=== PATIENT | female | born 1950 | race Caucasian/White ===

== ENCOUNTER 2017-07-16 10:30 | Inpatient (IN) | payer MEDICARE, MEDICAID ==
[2017-07-18 09:42] VITALS: BMI 27.5
[2017-07-21] MEDS ORDERED: Fentanyl 100 MCG/2 ML VIAL ONE ×2 (06:20→06:41)
[2017-07-21] MEDS ORDERED: HYDROmorphone 0.5 MG/0.5 ML SYRINGE ONE (06:20)
[2017-07-21] MEDS ORDERED: Albumin 5% 500 ML ONE (06:41)
[2017-07-21] MEDS ORDERED: Ketamine 50 MG/ML VIAL ONE (06:42)
--- NOTE | 2017-07-21 06:51 | HP ---
CHIEF COMPLAINT: Colon mass. HISTORY OF PRESENT ILLNESS: The patient is a 67-year-old female who underwent a colonoscopy. She wa s found to have a mass at the appendiceal orifice. Biopsy was an adenoma, it was too large to be rem hector. She has had an appendectomy. She denies any rectal bleeding. No family history of colon canc er. PAST MEDICAL HISTORY: Significant for hypertension and seasonal allergies. PAST SURGICAL HISTORY: Include ovarian cyst removal at age 20, cholecystectomy, appendectomy, and a coronary artery bypass or stent. MEDICATIONS: Include metoprolol, lisinopril, buspirone, amlodipine, sertraline, VESIcare, aspirin, c alcium, multivitamins, Atorvastatin. ALLERGIES: PENICILLIN, IODINE, and IRON. FAMILY HISTORY: Father of stroke. Mother of diabetes. SOCIAL HISTORY: She quit smoking in 2004. No alcohol. PHYSICAL EXAMINATION: VITAL SIGNS: Height 5 feet 7, weight 78, body mass index 27.8, blood pressure 130/71, pulse 63. GENERAL: Well-developed, well-nourished female, in no apparent distress. HEENT: Unremarkable. LUNGS: Clear. HEART: Regular rate and rhythm. ABDOMEN: Soft, nontender, good bowel sounds. No masses. She does have a reducible umbilical hernia . EXTREMITIES: Good pulses. No pedal edema. ASSESSMENT: Colon adenoma. PLAN: Laparoscopic right hemicolectomy. CONSENT: I have discussed the planned procedure as well as risk of bleeding, infection, injury to kalyn wel, bladder, need to open, leakage from staple line. She understands and gives informed consent.
[2017-07-21] MEDS ORDERED: Bupivacaine 0.25% HCL 30 ML VIAL ONE (07:04)
[2017-07-21] MEDS ORDERED: Bupivacaine HCl 0.5%/Epinephrine 1:200,000/PF 30 ml Vial ONE (07:04)
[2017-07-21] MEDS ORDERED: Lidocaine 1% w/Epinephrine 1:200K 30 ML VIAL ONE (07:05)
[2017-07-21] MEDS ORDERED: Levofloxacin 500 mg/D5W 100 ml Premix Bag ONE (07:09)
[2017-07-21] MEDS ORDERED: Clindamycin/D5W 900 mg/50 ml Premix Bag ONE (08:34)
[2017-07-21] MEDS ORDERED: Promethazine HCl 25 MG/ML VIAL IM PRN ×3 (09:50→11:39)
[2017-07-21] MEDS ORDERED: Promethazine HCl 25 MG/ML VIAL SLOW IVP PRN (09:50)
[2017-07-21] MEDS ORDERED: Ondansetron HCl/PF 4 MG/2 ML Vial IVP PRN ×3 (09:50→11:39)
[2017-07-21] MEDS ORDERED: hydrALAZINE 20 MG/ML VIAL SLOW IVP PRN (10:11)
--- NOTE | 2017-07-21 11:12 | OP ---
PREOPERATIVE DIAGNOSIS: Right colon mass. SURGEON: Tab Wagner M.D. PROCEDURE PERFORMED: Right hemicolectomy, laparoscopic. INDICATIONS: This is a 67-year-old female who on routine colonoscopy was found to have a mass at the appendiceal orifice. Biopsy was adenomatous. It was too large for removal. FINDINGS: About a 1 cm polypoid mass. PROCEDURE IN DETAIL: After informed consent was obtained, the patient was taken to the operating bisi m. She had underwent mechanical bowel prep at home. She was given IV antibiotics and she was given general endotracheal anesthesia. Her abdomen was prepped and draped in the usual fashion. Local ane sthesia infiltrated subcutaneously and deep. A 5 mm incision was performed in left lateral abdomen. A 5 mm incision was performed and a Veress needle inserted. Drop test performed. Pneumoperitoneum was created to a volume of 2 liters of carbon dioxide. Utilizing a bladeless 5 mm trocar and 0 degre e laparoscope, direct visual entry in the abdominal cavity was performed. Pneumoperitoneum was creat ed to a pressure of 15 mmHg. A 0 degree laparoscope inserted under direct vision. Another 5 mm port was placed in the left upper quadrant and a 12 mm port placed in left lower quadrant. Then a laparo scopic lysis of adhesions was performed. The anterior abdominal wall was freed up as well as the pel vis and right upper quadrant. Then an additional 5 mm port was placed in the right lower quadrant. The right colon was freed up by opening the white line of Toldt. The ileum was freed up and the ileu m was then divided by making a window in the mesentery just below the colon wall. The linear 60 mm w franklin load stapler was used to transversely divide the ileum. The mesentery was divided utilizing the LigaSure. The ileocolic vessels were ligated with Hemoclips. Then once colon had been mobilized, a window was created underneath the colon and the mesentery and it was divided with a linear 60 mm jesus manuel e load stapler. The mesentery was then completely divided with the LigaSure. The specimen was place d in the left lower quadrant to keep it out of the way. Hemostasis assured. Then the ileum was brou ght up to the colon. An enterotomy was performed approximately 7 cm from the staple line. Then an e nterotomy was made in the colon just distal to the staple line and the stapler was inserted one limb in each limb of bowel, closed and fired. There was some spillage of enteric contents at this point. This was aspirated. Then the common enterotomy was closed transversely with a Stratafix 3-0 suture transversely. Hemostasis assured. I tried to compress air through the anastomosis that appeared to be intact. Hemostasis assured. There were no air leaks. No enteric fluid leaks. The abdomen was t horoughly irrigated and any of the visible spilled contents had been removed and irrigated multiple t imes and then the left lower quadrant incision was enlarged. A wound protector then inserted over th e trocar into the abdomen and the specimen was removed from the abdomen through the left lower quadra nt incision and it was opened in the operating room and I could visualize the polyp that it was clear ly removed and sent to pathology for further analysis, hemostasis assured. The fascia was closed wit h a running looped #1 PDS. The abdomen reinsufflated with carbon dioxide. The laparoscope was reins erted and inspected. There was no bleeding, no evidence of any enteric leak. Appeared to be that th e anastomosis was patent. Then, the abdomen decompressed and the scope removed. The trocars removed . The subcutaneous reapproximated with interrupted 3-0 Vicryl. Skin closed with interrupted 4-0 Rap vi. Dermabond applied. The patient tolerated the procedure well and transferred to recovery in goo d condition. Sponge and needle count verified correct x2.
[2017-07-21] MEDS ORDERED: D5 1/2 NS w/20 mEq KCL 1,000 ML ONE (11:28)
[2017-07-21] MEDS ORDERED: diphenhydrAMINE 25 MG CAP PO PRN (11:39)
[2017-07-21] MEDS ORDERED: diphenhydrAMINE 50 MG/ML VIAL IVP PRN (11:39)
[2017-07-21] MEDS ORDERED: Naloxone HCl 0.4 mg/ml Vial IV PRN (11:39)
[2017-07-21] MEDS ORDERED: Zolpidem Tartrate 5 MG TAB PO PRN (11:39)
[2017-07-21] MEDS ORDERED: diphenhydrAMINE 50 MG/ML VIAL IM PRN (11:39)
[2017-07-21] MEDS ORDERED: Fentanyl 5000 MCG/250 ML CADD IVPB PRN (11:39)
[2017-07-21] MEDS ORDERED: Communication Order-Pharmacy FS SCH (11:45)
[2017-07-21] MEDS ORDERED: fentaNYL Citrate/PF 2,000 MCG in Sodium Chloride 0.9% 60 ML IV PRN (12:15)
[2017-07-21] MEDS ORDERED: fentaNYL Citrate/PF 2,000 MCG in Sodium Chloride 0.9% 60 ML IV SCH (12:15)
[2017-07-21] MEDS: Acetaminophen 1,000 MG in Premix Bag 1 BAG IVPB SCH ×3 (14:04→23:23)
[2017-07-21] MEDS: D5 1/2 NS w/20 mEq KCL 1,000 ML IV SCH ×3 (14:04→21:10)
[2017-07-21] MEDS: Ketorolac Tromethamine 30 MG/ML VIAL IVP SCH ×3 (14:04→23:24)
[2017-07-21] MEDS: Clindamycin/D5W 900 MG in Premix Bag 1 BAG IVPB SCH ×2 (14:29→21:08)
[2017-07-21] MEDS ORDERED: Dexamethasone 20 MG/5 ML VIAL ONE (17:12)
[2017-07-21] MEDS ORDERED: Lidocaine 1% PF 5 ML VIAL ONE (17:12)
[2017-07-21] MEDS ORDERED: Ondansetron HCl/PF 4 MG/2 ML Vial ONE (17:12)
[2017-07-21] MEDS ORDERED: Ketorolac Tromethamine 30 MG/ML VIAL ONE (17:12)
[2017-07-21] MEDS ORDERED: PROPOFOL 200 MG/20 ML VIAL ONE (17:12)
[2017-07-21] MEDS ORDERED: Glycopyrrolate 0.2 MG/ML 5 ML SYRINGE ONE (17:12)
[2017-07-21] MEDS ORDERED: ePHEDrine/0.9% NaCl/PF SYRINGE 50 mg/10 ml ONE (17:12)
[2017-07-21] MEDS ORDERED: PHENYLEPHRINE-NS 100 MCG/ML 10 ML SYRINGE ONE (17:12)
[2017-07-21] MEDS: Famotidine/PF 20 mg/2ml Vial SLOW IVP SCH (21:09)
[2017-07-21] MEDS: Famotidine 20 MG TAB PO SCH (23:22)
[2017-07-22] MEDS: Clindamycin/D5W 900 MG in Premix Bag 1 BAG IVPB SCH (03:58)
[2017-07-22 05:45] LABS: Anion Gap 13 mmol/L (10-20); BUN (Urea Nitrogen) 24 mg/dL (9.8-20.1); Calc. Creatinine Clearance 67 mL/min (70-130); Calcium 8.8 mg/dL (7.8-10.44); Carbon Dioxide 23 mmol/L (23-31); Chloride 106 mmol/L (98-107); Estimated GFR-MDRD 51; Glucose 148 mg/dL (80-115); Potassium 3.4 mmol/L (3.5-5.1); Sodium 139 mmol/L (136-145)
[2017-07-22 06:04] LABS: Band 11 % (5-11); Hemoglobin 11.9 g/dL (12.0-16.0); Lymphocytes 4 % (21-51); MDiff Complete? YES; Mean Corpuscular HGB CONC 32.8 g/dL (32.0-36.0); Mean Corpuscular Hemoglobin 31.6 pg (27.0-31.0); Mean Corpuscular Volume 96.2 fl (81.0-99.0); Mean Platelet Volume 7.6 fL (7.4-10.4); Monocytes 6 % (0-10); Neutrophil 79 % (42-75); Platelet Count 182 thou/uL (130-400); RBC Distribution Width 11.6 % (11.5-14.5); Red Blood Cell (RBC) Count 3.76 mill/uL (4.20-5.40); White Blood Cell (WBC) Count 20.2 thou/uL (4.8-10.8)
[2017-07-22] MEDS: Ketorolac Tromethamine 30 MG/ML VIAL IVP SCH ×3 (06:06→17:32)
[2017-07-22] MEDS: Acetaminophen 1,000 MG in Premix Bag 1 BAG IVPB SCH (06:07)
[2017-07-22] MEDS: D5 1/2 NS w/20 mEq KCL 1,000 ML IV SCH ×2 (08:28→20:41)
[2017-07-22] MEDS: Famotidine/PF 20 mg/2ml Vial SLOW IVP SCH ×2 (08:28→22:15)
[2017-07-22] MEDS: Famotidine 20 MG TAB PO SCH ×2 (08:37→20:43)
[2017-07-22] MEDS ORDERED: Enoxaparin Sodium 40 MG/0.4 ML SYRINGE SC SCH (09:00)
[2017-07-22] MEDS ORDERED: Prevnar 13-Val Conj/PF 0.5 ML SYRINGE IM ONE (09:00)
[2017-07-22] MEDS ORDERED: HYDROcodone/Acetaminophen 7.5/325 mg Tablet PO PRN ×2 (12:25)
[2017-07-23] MEDS: Ketorolac Tromethamine 30 MG/ML VIAL IVP SCH ×2 (01:48→04:59)
[2017-07-23] MEDS: D5 1/2 NS w/20 mEq KCL 1,000 ML IV SCH (04:58)
[2017-07-23 06:01] LABS: #Lymphocytes 1.5 thou/uL (1.20-3.40); #Monocytes 0.7 thou/uL (0.11-0.59); #Neutrophils 12.5 thou/uL (1.40-6.50); %Basophils 0.1 % (0.0-1.0); %Eosinophils 0.2 % (0.0-10.0); %Lymphocytes 9.8 % (21.0-51.0); %Neutrophils 84.9 % (42.0-75.0); Hemoglobin 11.9 g/dL (12.0-16.0); Mean Corpuscular HGB CONC 34.2 g/dL (32.0-36.0); Mean Corpuscular Hemoglobin 32.8 pg (27.0-31.0); Mean Corpuscular Volume 96.1 fl (81.0-99.0); Mean Platelet Volume 8.2 fL (7.4-10.4); Platelet Count 154 thou/uL (130-400); RBC Distribution Width 11.7 % (11.5-14.5); Red Blood Cell (RBC) Count 3.61 mill/uL (4.20-5.40); White Blood Cell (WBC) Count 14.8 thou/uL (4.8-10.8)
[2017-07-23] MEDS ORDERED: Enoxaparin Sodium 40 MG/0.4 ML SYRINGE SC SCH (09:00)
[2017-07-23] MEDS: Famotidine 20 MG TAB PO SCH (09:00)
[2017-07-23] MEDS: Famotidine/PF 20 mg/2ml Vial SLOW IVP SCH (09:04)
[2017-07-23 11:17] VITALS: BP 146/79; TEMP 97.8
--- NOTE | 2017-07-23 11:47 | DIS ---
DISCHARGE DIAGNOSIS: Right colon mass. PROCEDURES DURING ADMISSION: Laparoscopic right hemicolectomy. HOSPITAL COURSE: The patient was admitted. She had undergone a mechanical bowel prep. She was give n IV antibiotics, taken to the operating room where she underwent a laparoscopic right hemicolectomy. Postoperatively, she has done well. She is passing flatus, tolerating liquids well. She is afebri le, minimal pain. She is discharged home in good condition on hydrocodone and Zofran to follow up wi th me in 2 weeks.
== END 2017-07-23 11:24 | disposition home or self-care (01) | DRG 331 ==
LOC: SURG A 07-21 05:50
PROVIDERS: ADMIT Surgery; ATTEND Surgery
PROC: 0DTF0ZZ Resection of Right Large Intestine, Open Approach (ICD-10-PCS; principal; 2017-07-21)
DX: D12.0 Benign neoplasm of cecum (principal); I10 Essential (primary) hypertension; Z90.49 Acquired absence of other specified parts of digestive tract; Z79.82 Long term (current) use of aspirin; Z87.891 Personal history of nicotine dependence
CPT/HCPCS: 36415; 36416; 80048; 80053; 82378; 83036; 85025; 88307; 88341; 88342; 93005; 93010; J0131; J0670; J1100; J1170; J1650; J1885; J1956; J2001; J2405; J2704; J3010; J3490; J7050; P9045; S0020; S0028

== ENCOUNTER 2017-08-25 08:32 | Outpatient (CLI) | payer MEDICARE, MEDICAID | END 2017-08-25 08:33 | disposition home or self-care (01) | LOC: BICMAMMO 08:32 | PROVIDERS: ATTEND Family Medicine | DX: Z13.820 Encounter for screening for osteoporosis (principal) | CPT/HCPCS: 77080 ==

== ENCOUNTER 2018-05-07 13:14 | Outpatient (CLI) | payer MEDICARE, MEDICAID | END 2018-05-07 13:15 | disposition home or self-care (01) | LOC: BICMAMMO 13:14 | PROVIDERS: ATTEND Family Medicine | DX: Z12.31 Encounter for screening mammogram for malignant neoplasm of breast (principal) | CPT/HCPCS: 77063; 77067 ==

== ENCOUNTER 2018-10-29 08:58 | Outpatient (CLI) | payer MEDICARE, MEDICAID ==
--- NOTE | 2018-10-29 11:04 | MRI ---
MRI OF THE RIGHT KNEE: Date: 10/29/18 PROVIDED CLINICAL HISTORY: Right knee pain. FINDINGS: The anterior cruciate ligament, posterior cruciate ligament, medial collateral ligament, and lateral collateral ligamentous complex demonstrate an intact MR appearance. There is marked thickening and signal inhomogeneity involving the distal quadriceps tendon with foci with conspicuous foci of linear true fluid signal intensity. There is complex nondisplaced tearing involving the body and posterior horn of the medial meniscus. T he lateral meniscus demonstrates no evidence for tear. There is no focal articular cartilage defect apparent. There are small foci of articular cartilage fi ssuring and articular cartilage thinning involving the patella. There is a small knee joint effusion with small Pinon's cyst. No focal concerning regional marrow or muscular signal abnormality is evident. IMPRESSION: 1. Complex nondisplaced body and posterior horn medial meniscal tear. 2. Tendinosis and partial thickness nonattenuating interstitial tearing involving the distal quadric eps tendon. 3. Small knee joint effusion. 4. Patellar chondrosis. POS: C
== END 2018-10-29 08:59 | disposition home or self-care (01) ==
LOC: BICMRI 08:58
PROVIDERS: ATTEND Family Medicine
DX: M17.11 Unilateral primary osteoarthritis, right knee (principal); S83.241A Other tear of medial meniscus, current injury, right knee, initial encounter; S86.911A Strain of unspecified muscle(s) and tendon(s) at lower leg level, right leg, initial encounter; M25.461 Effusion, right knee

== ENCOUNTER 2018-12-11 14:11 | Outpatient (CLI) | payer MEDICARE ==
[2018-12-11 15:49] LABS: #Basophils 0.1 thou/uL (0.0-0.2); #Eosinphils 0.3 thou/uL (0.0-0.7); #Lymphocytes 3.1 thou/uL (1.20-3.40); #Monocytes 0.8 thou/uL (0.11-0.59); #Neutrophils 5.9 thou/uL (1.40-6.50); %Basophils 0.7 % (0.0-1.0); %Eosinophils 2.5 % (0.0-10.0); %Lymphocytes 30.7 % (21.0-51.0); %Monocytes 7.6 % (0.0-10.0); %Neutrophils 58.4 % (42.0-75.0); Hemoglobin 14.4 g/dL (12.0-16.0); Mean Corpuscular HGB CONC 33.3 g/dL (32.0-36.0); Mean Corpuscular Hemoglobin 31.2 pg (27.0-31.0); Mean Corpuscular Volume 93.9 fL (78.0-98.0); Platelet Count 250 thou/uL (130-400); Red Blood Cell (RBC) Count 4.61 mill/uL (4.20-5.40)
[2018-12-11 16:09] LABS: ALT (SGPT) 14 U/L (8-55); AST (SGOT) 16 U/L (5-34); Albumin 4.6 g/dL (3.4-4.8); Alkaline Phosphatase 104 U/L (40-150); Anion Gap 14 mmol/L (10-20); BUN (Urea Nitrogen) 11 mg/dL (9.8-20.1); Bilirubin, Total 0.9 mg/dL (0.2-1.2); Calc. Creatinine Clearance 0 mL/min (70-130); Carbon Dioxide 26 mmol/L (23-31); Chloride 103 mmol/L (98-107); Estimated GFR-MDRD 61; Globulin 3.2 g/dL (2.4-3.5); Glucose 93 mg/dL (80-115); Potassium 4.2 mmol/L (3.5-5.1); Protein, Total 7.8 g/dL (6.0-8.3); Sodium 139 mmol/L (136-145)
--- NOTE | 2018-12-21 18:47 | EKG ---
Test Reason : Blood Pressure : / mmHG Vent. Rate : 054 BPM Atrial Rate : 054 BPM P-R Int : 194 ms QRS Dur : 080 ms QT Int : 480 ms P-R-T Axes : 055 012 026 degrees QTc Int : 455 ms Sinus bradycardia Otherwise normal ECG When compared with ECG of 18-JUL-2017 10:15, No significant change was found Confirmed by MICHELLE CHAN (2) on 12/21/2018 6:46:51 PM Referred By: YANNICK Confirmed By:MICHELLE CHAN
== END 2018-12-11 14:12 | disposition home or self-care (01) ==
LOC: LABBT 14:11
PROVIDERS: ATTEND Surgery
DX: Z01.818 Encounter for other preprocedural examination (principal); K43.2 Incisional hernia without obstruction or gangrene; K43.9 Ventral hernia without obstruction or gangrene
CPT/HCPCS: 80053; 85025; 93005; 93010

== ENCOUNTER 2018-12-18 10:13 | Inpatient (IN) | payer MEDICARE, MEDICAID ==
[2018-12-18] MEDS ORDERED: Bupivacaine/Epinephrine 0.25% 30 ML VIAL ONE (11:09)
[2018-12-18] MEDS ORDERED: Levofloxacin 500 mg/D5W 100 ml Premix Bag ONE (11:13)
[2018-12-18] MEDS ORDERED: Ondansetron PF 4 MG/2 ML Vial IVP PRN (13:16)
[2018-12-18] MEDS ORDERED: Promethazine HCl 25 MG/ML VIAL IM PRN (13:16)
[2018-12-18] MEDS ORDERED: HYDROcodone/Acetaminophen 10/325 mg Tablet PO PRN ×2 (13:16)
[2018-12-18] MEDS ORDERED: Morphine 4 MG/ML VIAL SLOW IVP PRN ×2 (13:16)
[2018-12-18] MEDS ORDERED: Dextrose 50% Abboject 50 ML SYRINGE SLOW IVP PRN (13:16)
[2018-12-18] MEDS ORDERED: Dextrose 5% in Water 1,000 ML IV PRN (13:16)
[2018-12-18] MEDS ORDERED: hydrALAZINE 20 MG/ML VIAL SLOW IVP PRN (13:16)
[2018-12-18] MEDS ORDERED: Ondansetron PF 4 MG/2 ML Vial ONE (13:44)
[2018-12-18] MEDS ORDERED: Fentanyl 100 MCG/2 ML VIAL ONE (13:53)
--- NOTE | 2018-12-18 14:22 | OP ---
DATE OF PROCEDURE: 12/18/2018 PREOPERATIVE DIAGNOSIS: Incisional ventral hernia, left lower quadrant. PROCEDURE PERFORMED: Laparoscopic ventral hernia repair with mesh. INDICATIONS: A 68-year-old female who had a previous right colon resection for a large polyp, who developed an incisional hernia on the extraction port site, left lower quadrant. FINDINGS: A 4 x 4 cm defect in the left lower quadrant. A 15 x 10 cm piece of Proceed mesh used. DESCRIPTION OF PROCEDURE: After informed consent was obtained, the patient was taken to the operating room and given general endotracheal anesthesia, placed in the supine position. Abdomen was prepped and draped in the usual fashion. Local anesthesia infiltrated subcutaneously and deep. A 12-mm incision was performed at the right flank. Veress needle inserted. Drop test performed. Pneumoperitoneum was created to a volume of 2 L of carbon dioxide. Utilizing a bladeless 12-mm trocar and 0-degree laparoscope, direct visual entry in the abdominal cavity was performed. Pneumoperitoneum was created to a pressure of 15 mmHg. Under direct vision, two 5-mm ports were placed in the right lateral abdomen. A laparoscopic lysis of adhesions was performed to completely empty the hernia cavity. Then, utilizing 0 Ethibond V-Loc suture, the hernia was closed transversely. Then, it was measured at 4 cm. A 10 x 15 cm piece of mesh was fashioned by placing 0 Ethibond suture in four quadrants on the mesh, hydrating it, rolling it, inserting it intra-abdominally, then unrolled intra-abdominally using the GraNee needle. The sutures were individually grasped to position the mesh optimally to cover the repair. This was further secured to the abdominal wall utilizing SecureStrap tacks. The final repair was done under reduced abdominal pressure of 12 mmHg. At this point, the initial 12-mm port was closed with a 0 Vicryl suture in the GraNee needle. The abdomen decompressed. Scope was removed. The skin closed with interrupted 4-0 Rapide. Dermabond applied. Sterile bandage applied and a binder. The patient tolerated the procedure well, transferred to Recovery in good condition. Sponge and needle count verified correct x2. Job ID: [id number]
[2018-12-18] MEDS ORDERED: D5 1/2 NS w/20 mEq KCL 1,000 ML ONE (15:14)
[2018-12-18 17:27] VITALS: BMI 28.7
[2018-12-18] MEDS: Ketorolac Tromethamine 30 MG/ML VIAL IVP SCH ×2 (18:28→23:17)
[2018-12-18] MEDS: D5 1/2 NS w/20 mEq KCL 1,000 ML IV SCH ×2 (19:11→23:28)
[2018-12-18] MEDS ORDERED: Lisinopril 20 MG TAB PO SCH (21:00)
[2018-12-18] MEDS ORDERED: Amlodipine 5 MG TAB PO SCH (21:00)
[2018-12-18] MEDS ORDERED: Trospium 20 MG TAB PO SCH (21:00)
[2018-12-18] MEDS ORDERED: Atorvastatin Calcium 40 MG TAB PO SCH (21:00)
[2018-12-18] MEDS: Famotidine/PF 20 mg/2ml Vial SLOW IVP SCH (23:12)
[2018-12-18] MEDS: busPIRone HCl 10 MG TAB PO SCH (23:15)
[2018-12-18] MEDS: Metoprolol Tartrate 100 MG TAB PO SCH (23:16)
[2018-12-18] MEDS: Famotidine 20 MG TAB PO SCH (23:16)
[2018-12-19 04:20] LABS: #Lymphocytes 1.4 thou/uL (1.20-3.40); #Monocytes 0.8 thou/uL (0.11-0.59); #Neutrophils 14.1 thou/uL (1.40-6.50); %Eosinophils 0.1 % (0.0-10.0); %Lymphocytes 8.3 % (21.0-51.0); %Monocytes 5.1 % (0.0-10.0); %Neutrophils 86.4 % (42.0-75.0); Hemoglobin 12.9 g/dL (12.0-16.0); Mean Corpuscular HGB CONC 33.7 g/dL (32.0-36.0); Mean Corpuscular Hemoglobin 31.5 pg (27.0-31.0); Mean Corpuscular Volume 93.5 fL (78.0-98.0); Mean Platelet Volume 7.8 fL (7.4-10.4); Platelet Count 218 thou/uL (130-400); RBC Distribution Width 11.7 % (11.5-14.5); Red Blood Cell (RBC) Count 4.09 mill/uL (4.20-5.40); White Blood Cell (WBC) Count 16.3 thou/uL (4.8-10.8)
[2018-12-19 04:34] LABS: Anion Gap 11 mmol/L (10-20); BUN (Urea Nitrogen) 12 mg/dL (9.8-20.1); Calc. Creatinine Clearance 83 mL/min (70-130); Calcium 9.2 mg/dL (7.8-10.44); Carbon Dioxide 23 mmol/L (23-31); Chloride 104 mmol/L (98-107); Estimated GFR-MDRD 68; Glucose 141 mg/dL (80-115); Potassium 4.2 mmol/L (3.5-5.1); Sodium 134 mmol/L (136-145)
[2018-12-19] MEDS: Ketorolac Tromethamine 30 MG/ML VIAL IVP SCH ×2 (06:38→11:27)
[2018-12-19] MEDS: Famotidine 20 MG TAB PO SCH (09:00)
[2018-12-19] MEDS ORDERED: Aspirin Chewable 81 MG TAB PO SCH ×2 (09:00→21:00)
[2018-12-19] MEDS: busPIRone HCl 10 MG TAB PO SCH (09:00)
[2018-12-19] MEDS ORDERED: Enoxaparin Sodium 30 MG/0.3 ML SYRINGE SC SCH (09:00)
[2018-12-19] MEDS: Metoprolol Tartrate 100 MG TAB PO SCH (09:00)
[2018-12-19] MEDS: D5 1/2 NS w/20 mEq KCL 1,000 ML IV SCH (09:01)
[2018-12-19] MEDS: Famotidine/PF 20 mg/2ml Vial SLOW IVP SCH (09:02)
[2018-12-19] MEDS ORDERED: Levofloxacin 500 mg/D5W 100 ml Premix Bag IVPB SCH (11:00)
[2018-12-19] MEDS ORDERED: traMADol HCl 50 MG TAB PO PRN ×2 (15:25)
[2018-12-19] MEDS ORDERED: Acetaminophen 500 MG TAB PO PRN ×2 (15:25→15:31)
--- NOTE | 2018-12-19 16:11 | PRG ---
DATE OF SERVICE: 12/19/2018 SUBJECTIVE: Carrie Solis is doing well today. She is tolerating her diet. Her pain is under good control. OBJECTIVE: LUNGS: Clear to auscultation. CARDIAC: Rhythm without murmur or gallop. VITAL SIGNS: Temperature 97.9, heart rate 75, blood pressure 145/75. ABDOMEN: Soft, nontender with good bowel sounds. Laparoscopic wounds well healed. LABORATORY DATA: Hemoglobin and basic metabolic profile are normal this morning. HOME MEDICATIONS: 1. Tylenol. 2. Atorvastatin. 3. Amlodipine. 4. Lisinopril. 5. Sertraline. 6. Metoprolol. 7. Buspirone. 8. Aspirin. 9. Tramadol. 10. Ibuprofen. 11. Acetaminophen. ASSESSMENT AND PLAN: Doing well after laparoscopic incisional hernia repair. Discharged home. No lifting over 25 pounds for 6 weeks. Remove abdominal binder to shower or bathe. [id number]-[id number] Tylenol, Ultram, and Motrin p.r.n. pain. Resume home medications. Follow up with Dr. Wagner in 2 to 3 weeks. Job ID: [id number]
[2018-12-19 16:44] VITALS: BP 155/81; TEMP 97.4
[2018-12-19] MEDS ORDERED: Amlodipine 5 MG TAB PO SCH (21:00)
[2018-12-19] MEDS ORDERED: Non-Formulary Item 1 EACH (Lisinopril [Lisinopril] 1 TAB) PO SCH (21:00)
[2018-12-19] MEDS ORDERED: Metoprolol Tartrate 100 MG TAB PO SCH (21:00)
[2018-12-19] MEDS ORDERED: Non-Formulary Item 1 EACH (Atorvastatin Calcium [Lipitor] 80 MG) PO SCH (21:00)
[2018-12-19] MEDS ORDERED: busPIRone HCl 10 MG TAB PO SCH (21:00)
[2018-12-20] MEDS ORDERED: Polyethylene Glycol 3350 17 GM Packet PO SCH (09:00)
[2018-12-20] MEDS ORDERED: Non-Formulary Item 1 EACH (Sertraline Hcl [Zoloft] 50 MG) PO SCH (09:00)
[2018-12-21] MEDS ORDERED: Ibuprofen 600 MG TAB PO PRN (23:59)
== END 2018-12-19 17:00 | disposition home or self-care (01) | DRG 355 ==
LOC: SDC 10:13 → SURG A 13:16
PROVIDERS: ADMIT Surgery; ATTEND Surgery
PROC: 0WUF4JZ Supplement Abdominal Wall with Synthetic Substitute, Percutaneous Endoscopic Approach (ICD-10-PCS; principal; 2018-12-18)
DX: K43.2 Incisional hernia without obstruction or gangrene (principal); I10 Essential (primary) hypertension; Z88.0 Allergy status to penicillin; Z91.041 Radiographic dye allergy status; Z90.49 Acquired absence of other specified parts of digestive tract; Z98.51 Tubal ligation status; Z79.82 Long term (current) use of aspirin
CPT/HCPCS: 36415; 80048; 85025; J1650; J1885; J1956; J2270; J2405; J3010; S0028

== ENCOUNTER 2019-05-10 11:17 | Outpatient (CLI) | payer MEDICARE, MEDICAID ==
--- NOTE | 2019-05-10 13:27 | MMO ---
Bilateral MAMMO Bilat Screen [facility]. CLINICAL HISTORY: Patient is 69 years old and is seen for screening. The patient has no family history of breast cancer. The patient has no personal history of cancer. VIEWS: The views performed were: bilateral craniocaudal with tomosynthesis and bilateral mediolateral oblique with tomosynthesis. FILMS COMPARED: The present examination has been compared to prior imaging studies performed at [facility] on 11/01/2015, 04/29/2016, 05/01/2017 and 05/07/2018. This study has been interpreted with the assistance of computer-aided detection. MAMMOGRAM FINDINGS: There are scattered fibroglandular densities. There are stable intramammary lymph nodes seen in both breasts. There are no suspicious masses, suspicious calcifications, or new areas of architectural distortion. IMPRESSION: THERE IS NO MAMMOGRAPHIC EVIDENCE OF MALIGNANCY. A ROUTINE FOLLOW-UP MAMMOGRAM IN 1 YEAR IS RECOMMENDED. THE RESULTS OF THIS EXAM WERE SENT TO THE PATIENT. ACR BI-RADS Category 2 - Benign finding MAMMOGRAPHY NOTE: 1. A negative mammogram report should not delay a biopsy if a dominant of clinically suspicious mass is present. 2. Approximately 10% to 15% of breast cancers are not detected by mammography. 3. Adenosis and dense breasts may obscure an underlying neoplasm. Reported by: INDIGO JUNG MD Electonically Signed: [id number]
== END 2019-05-10 11:18 | disposition home or self-care (01) ==
LOC: BICMAMMO 11:17
PROVIDERS: ATTEND Family Medicine
DX: Z12.31 Encounter for screening mammogram for malignant neoplasm of breast (principal)
CPT/HCPCS: 77063; 77067

== ENCOUNTER 2019-08-15 18:58 | Inpatient (IN) | payer MEDICARE, MEDICAID ==
[2019-08-15 19:43] LABS: #Lymphocytes 0.9 thou/uL (1.20-3.40); #Monocytes 1.4 thou/uL (0.11-0.59); #Neutrophils 11.3 thou/uL (1.40-6.50); %Basophils 0.1 % (0.0-1.0); %Eosinophils 0.1 % (0.0-10.0); %Lymphocytes 6.5 % (21.0-51.0); %Monocytes 10.4 % (0.0-10.0); Hemoglobin 11.5 g/dL (12.0-16.0); Mean Corpuscular HGB CONC 32.6 g/dL (32.0-36.0); Mean Corpuscular Hemoglobin 30.2 pg (27.0-31.0); Mean Corpuscular Volume 92.8 fL (78.0-98.0); Mean Platelet Volume 8.3 fL (7.4-10.4); Platelet Count 150 thou/uL (130-400); RBC Distribution Width 11.4 % (11.5-14.5); Red Blood Cell (RBC) Count 3.81 mill/uL (4.20-5.40); White Blood Cell (WBC) Count 13.7 thou/uL (4.8-10.8)
[2019-08-15 20:05] LABS: Bacteria/HPF 2+ HPF (None Seen); Bilirubin Negative (Negative); Blood, Urine 1+ (Negative); Clarity Turbid (Clear); Glucose, Urine (Dipstick) Normal (Negative); Leukocyte 500 Leu/uL (Negative); Nitrite 1+ (Negative); Protein, Urine (Dipstick) 100 mg/dL (Neg-Trace); Squamous Epithelial 0-3 HPF (0-3); Urobilinogen Normal mg/dL (Less than 2); WBC/HPF Greater than 50 HPF (0-3); Yeast-Budding 2+ HPF (None Seen)
[2019-08-15 20:14] LABS: ALT (SGPT) 21 U/L (8-55); AST (SGOT) 28 U/L (5-34); Albumin 3.5 g/dL (3.4-4.8); Alkaline Phosphatase 100 U/L (40-110); Anion Gap 15 mmol/L (10-20); BUN (Urea Nitrogen) 9 mg/dL (9.8-20.1); Bilirubin, Total 1.2 mg/dL (0.2-1.2); CK (CPK) 60 U/L (29-168); Calc. Creatinine Clearance 0 mL/min (70-130); Calcium 8.1 mg/dL (7.8-10.44); Carbon Dioxide 19 mmol/L (23-31); Chloride 102 mmol/L (98-107); Estimated GFR-MDRD 65; Globulin 3.1 g/dL (2.4-3.5); Glucose 138 mg/dL (80-115); Protein, Total 6.6 g/dL (6.0-8.3); Sodium 133 mmol/L (136-145)
[2019-08-15 20:16] LABS: Potassium 2.8 mmol/L (3.5-5.1)
[2019-08-15] MEDS ORDERED: cefTRIAXone\\ROCEPHIN 2 GM VIAL ONE (20:33)
[2019-08-15 20:36] LABS: CKMB 0.5 ng/mL (0-6.6)
--- NOTE | 2019-08-15 20:44 | PDOC.FPRHP ---
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 Patient's best friend and her best friend's daughter accompanied her during the encounter. Per patient she has felt weak throughout the last few days. Per her best friend she just laid in bed yesterday without much activity which is unlike her. Her friend also thought she felt warm yesterday and measured her temperature which was 99.3F. Patient endorses increased urinary frequency throughout the last few days, but denies dysuria. Patient reportedly was bending down to grab a dog bowl today when she fell into a book case. It was a witness fall and witnesses deny trauma to her head. After the fall they decided to bring her into the ED. PCP: [facility] ED Course: 1g vanc, 2.5L NS, rocephin - Allergies/Adverse Reactions Allergies Allergy/AdvReac Type Severity Reaction Status Date / Time Penicillins Allergy Severe HIVES, Verified 08/15/19 23:02 SWELLING iodine Allergy Intermediate Rash Verified 08/15/19 23:02 iron Allergy Intermediate VOMITING Verified 08/15/19 23:02 Iodine and Iodide Containing Allergy RASH, Verified 08/15/19 23:02 Produc - Home Medications Medication Instructions Recorded Confirmed Type Amlodipine Besylate [amLODIPine 5 mg PO DAILY 08/12/16 08/15/19 History Besylate] Atorvastatin Calcium [Lipitor] 80 mg PO HS 08/12/16 08/15/19 History Metoprolol Tartrate [Lopressor] 100 mg PO BID 08/12/16 08/15/19 History Sertraline HCl [Zoloft] 50 mg PO QAM 08/12/16 08/15/19 History busPIRone HCl [Buspar] 10 mg PO QAM 08/12/16 08/15/19 History Lisinopril 1 tab PO QAM 12/11/18 08/15/19 History Acetaminophen [Tylenol Extra 1,000 mg PO Q6H PRN tab 12/19/18 08/15/19 Rx Strength] Ibuprofen [Motrin] 600 mg PO Q6H PRN tab 12/19/18 08/15/19 Rx Hydrochlorothiazide 25 mg PO QAM 08/15/19 08/15/19 History - History PMHx: HTN, HLD, OA, depression, and a 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 PSHx: L oophorectomy FHx: Mother-CAD, DM2 Social: 30+yr smoking hx quit 15yrs ago, no etoh or drug use - Vital signs BP: [148/84] HR: [98] RR: [20] Tmax: [99.9F] Pox: [98]% on [RA] Wt: [80.5kg] - Physical Exam Constitutional: NAD, well developed HEENT: normocephalic and atraumatic, EOMI Neck: supple, FROM Chest: no-tender to palpation, no lesions Heart: RRR, normal S1/S2 Lungs: CTAB, no respiratory distress Abdomen: other (suprapubic ttp, CVA tenderness R>L) Musculoskeletal: normal structure, ROM grossly normal Neurological: no focal deficit, normal sensation Skin: no rash/lesions, good turgor Heme/Lymphatic: no unusual bruising or bleeding, no purpura Psychiatric: normal mood and affect, good judgment and insight FMR H&P: Results - Labs Result Diagrams: 08/16/19 05:23 08/16/19 05:23 Lab results: WBC 13.7 thou/uL (4.8-10.8) H 08/15/19 19:19 Hgb 11.5 g/dL (12.0-16.0) L 08/15/19 19:19 Hct 35.3 % (36.0-47.0) L 08/15/19 19:19 MCV 92.8 fL (78.0-98.0) 08/15/19 19:19 Plt Count 150 thou/uL (130-400) 08/15/19 19:19 Neutrophils % 83.0 % (42.0-75.0) H 08/15/19 19:19 Sodium 133 mmol/L (136-145) L 08/15/19 19:19 Potassium 2.8 mmol/L (3.5-5.1) L* 08/15/19 19:19 Chloride 102 mmol/L (98-107) 08/15/19 19:19 Carbon Dioxide 19 mmol/L (23-31) L 08/15/19 19:19 BUN 9 mg/dL (9.8-20.1) L 08/15/19 19:19 Creatinine 0.87 mg/dL (0.6-1.1) 08/15/19 19:19 Glucose 138 mg/dL (80-115) H 08/15/19 19:19 Lactic Acid 0.8 mmol/L (0.5-2.2) 08/15/19 19:19 Calcium 8.1 mg/dL (7.8-10.44) 08/15/19 19:19 Total Bilirubin 1.2 mg/dL (0.2-1.2) 08/15/19 19:19 AST 28 U/L (5-34) 08/15/19 19:19 ALT 21 U/L (8-55) 08/15/19 19:19 Alkaline Phosphatase 100 U/L (40-110) 08/15/19 19:19 Creatine Kinase 60 U/L (29-168) 08/15/19 19:19 CK-MB (CK-2) 0.5 ng/mL (0-6.6) 08/15/19 19:19 Serum Total Protein 6.6 g/dL (6.0-8.3) 08/15/19 19:19 Albumin 3.5 g/dL (3.4-4.8) 08/15/19 19:19 Urine Ketones Negative mg/dL (Negative) 08/15/19 19:30 Urine Blood 1+ (Negative) A 08/15/19 19:30 Urine Nitrite 1+ (Negative) A 08/15/19 19:30 Ur Leukocyte Esterase 500 Jenny/uL (Negative) A 08/15/19 19:30 Urine RBC 11-20 HPF (0-3) A 08/15/19 19:30 Urine WBC Greater than 50 HPF (0-3) A 08/15/19 19:30 Ur Squamous Epith Cells 0-3 HPF (0-3) 08/15/19 19:30 Urine Bacteria 2+ HPF (None Seen) A 08/15/19 19:30 FMR H&P: A/P - Problem List (1) Sepsis Current Visit: Yes Status: Acute Code(s): A41.9 - SEPSIS, UNSPECIFIED ORGANISM (2) Pyelonephritis Current Visit: Yes Status: Acute Code(s): N12 - TUBULO-INTERSTITIAL NEPHRITIS, NOT SPCF ACUTE OR CHRONIC (3) UTI (urinary tract infection) Current Visit: Yes Status: Acute (4) Elevated troponin Current Visit: Yes Status: Acute Code(s): R79.89 - OTHER SPECIFIED ABNORMAL FINDINGS OF BLOOD CHEMISTRY (5) Hypokalemia Current Visit: Yes Status: Acute Code(s): E87.6 - HYPOKALEMIA (6) HTN (hypertension) Current Visit: Yes Status: Chronic Code(s): I10 - ESSENTIAL (PRIMARY) HYPERTENSION (7) HLD (hyperlipidemia) Current Visit: Yes Status: Chronic Code(s): E78.5 - HYPERLIPIDEMIA, UNSPECIFIED (8) Depression Current Visit: Yes Status: Chronic Code(s): F32.9 - MAJOR DEPRESSIVE DISORDER, SINGLE EPISODE, UNSPECIFIED (9) Osteoarthritis Current Visit: Yes Status: Chronic Code(s): M19.90 - UNSPECIFIED OSTEOARTHRITIS, UNSPECIFIED SITE (10) History of CVA (cerebrovascular accident) Current Visit: Yes Status: Chronic Code(s): Z86.73 - PRSNL HX OF TIA (TIA), AND CEREB INFRC W/O RESID DEFICITS - Plan Patient is a 69F with PMHx of HTN, HLD, OA, depression, and a 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 #sepsis 2/2 UTI #Pyelonephritis -weakness and increased urinary frequency for last several days -UA: turbid, leuks, nitrites, wbc, bacteria -started on vanc and rocephin in ED -hx of UTI every few years -continue rocephin -urine and blood cx pending, will follow -CVA tenderness, R>L; bilateral renal US ordered -decreased PO intake; IVF #Hypokalemia -potassium 2.8, repleted with 40meq KCl -will continue to monitor and replete as necessary #Elevated trop -trop 0.031 -patient denies chest pain -no ST elevation on EKG -will trend #HTN -continue home meds #HLD -continue home meds #OA -continue home meds #Depression -continue home meds DVT ppx: lovenox Diet: Dispo: inpatient for IV abx for sepsis 2/2 UTI; urine and blood cultures pending ; monitoring potassium and trending trops Code: Full PCP: [facility] FMR H&P: Upper Level - Pertinent history 69 yo F here with complaint of fever, chills, and increased urinary frequency. This has been worsening for the past 3 days. In the ED labs were significant for a K of 2.8 and UA positive for nitrites, LE, WBCs, and bacteria. She was given Rocephin and Vanc and a 2L NS bolus. Blood and urine cx were sent prior to abx PMHx HTN CAD Hx of stroke with L sided deficit MDD HLD FHx non contributory Social Hx 30 pack year smoking hx, quit 15 years ago No etoh or drugs - Pertinent findings See nutrition internship note for full ROS, PE, vitals, and labs ROS General Complains of chills and fever HEENT denies sore throat or ear pain CV Denies CP, diaphoresis or palpitations Resp Denies SOB or cough GI Complains of lower abdominal pain. Complains of n/v complains of dysuria and frequency Neuro denies weakness or numbness. PE General A&O x4 HEENT NCAT CV RRR, no murmur Resp CTA Abd suprapubic tenderness. R sided CVAT Neuro L arm held in flexion. Weakness in L upper and lower extremities - Plan Date/Time: 08/15/192042 I, Tab Helm DO, have evaluated this patient and agree with findings/plan as outlined by nutrition internship resident. Pertinent changes/additions are listed here. 1.Sepsis secondary to Pyelonephritis - Continue IV rocephin -Urine cultures pending Renal US to r/o abscess -Tylenol as needed for fever -IVF at maintenance rate -Admit to medical obs 2.Hypokalemia -Replaced PO in the ED. -Check Mg and replace if indicated -Recheck in am 3.HTN -Restart home meds See nutrition internship portion for management of other chronic disease Diet Heart healthy Code Full PPx SCD Dispo: pt is in fair condition. Plan to admit for IV abx, K replacement, and control of n/v. Likely length of stay is 2-3 days Addendum - Attending - Attending Attestation Date/Time: 08/16/19 [id number] I personally evaluated the patient and discussed the management with Dr. Miller last night. I agree with the History, Examination, Assessment and Plan documented above with any addition or exceptions noted below. Primarily admitted for Spesis from UTI. However patiet notes she has been falling frequently. PT/OT to eval. May benefit from extended rehab for frequent falls.
[2019-08-15] MEDS ORDERED: Potassium Chloride 20 MEQ TAB ONE (21:40)
[2019-08-15] MEDS ORDERED: Aspirin 325 MG TAB ONE (22:02)
[2019-08-15 23:17] VITALS: BMI 27.8
[2019-08-15] MEDS: Sodium Chloride 0.9% 1,000 ML IV SCH (23:25)
[2019-08-15] MEDS ORDERED: Ondansetron ODT 4 MG TAB PO PRN (23:46)
[2019-08-15] MEDS ORDERED: Calcium Carbonate 500 MG ChewTAB PO PRN (23:46)
[2019-08-16 01:29] LABS: Magnesium 1.4 mg/dL (1.6-2.6); Phosphorus 2.1 mg/dL (2.3-4.7)
[2019-08-16 06:04] LABS: #Lymphocytes 1.3 thou/uL (1.20-3.40); #Monocytes 1.2 thou/uL (0.11-0.59); #Neutrophils 10.7 thou/uL (1.40-6.50); %Basophils 0.2 % (0.0-1.0); %Eosinophils 0.2 % (0.0-10.0); %Lymphocytes 9.8 % (21.0-51.0); %Monocytes 8.9 % (0.0-10.0); %Neutrophils 80.9 % (42.0-75.0); Hemoglobin 10.8 g/dL (12.0-16.0); Mean Corpuscular HGB CONC 31.9 g/dL (32.0-36.0); Mean Corpuscular Hemoglobin 29.5 pg (27.0-31.0); Mean Corpuscular Volume 92.4 fL (78.0-98.0); Mean Platelet Volume 8.4 fL (7.4-10.4); Platelet Count 144 thou/uL (130-400); RBC Distribution Width 11.5 % (11.5-14.5); Red Blood Cell (RBC) Count 3.65 mill/uL (4.20-5.40); White Blood Cell (WBC) Count 13.2 thou/uL (4.8-10.8)
[2019-08-16 06:21] LABS: Anion Gap 11 mmol/L (10-20); BUN (Urea Nitrogen) 8 mg/dL (9.8-20.1); Calc. Creatinine Clearance 86 mL/min (70-130); Calcium 7.6 mg/dL (7.8-10.44); Carbon Dioxide 19 mmol/L (23-31); Chloride 110 mmol/L (98-107); Estimated GFR-MDRD 71; Glucose 114 mg/dL (80-115); Potassium 3.2 mmol/L (3.5-5.1); Sodium 137 mmol/L (136-145)
[2019-08-16] MEDS: Sodium Chloride 0.9% 1,000 ML IV SCH (06:33)
--- NOTE | 2019-08-16 06:51 | PDOC.FM ---
- Objective MAR Reviewed: Yes Vital Signs & Weight: Vital Signs (12 hours) Temp Pulse Resp BP Pulse Ox 08/16/19 04:25 99.4 F 82 18 174/74 H 94 L 08/15/19 23:54 97.4 F L 78 18 162/79 H 96 08/15/19 22:25 95 08/15/19 19:18 98.0 F 77 20 155/67 H 95 Weight Weight 80.513 kg I&O: 08/14/19 08/15/19 08/16/19 06:59 06:59 06:59 Intake Total 1500 Output Total 1400 Balance 100 Result Diagrams: 08/16/19 05:23 08/16/19 05:23 Phys Exam - Physical Examination Constitutional: NAD HEENT: moist MMs Neck: supple Respiratory: no wheezing, clear to auscultation bilateral Cardiovascular: RRR, no significant murmur Gastrointestinal: soft, non-tender No CVA tenderness Musculoskeletal: pulses present Neurological: moves all 4 limbs Psychiatric: normal affect, A&O x 3 Skin: normal turgor Dx/Plan - Plan Plan: 69yo female with pmh of HTN, HLD, OA, depression, and a prior CVA w/ residual L- sided hemiparesis admitted for sepsis 2/2 pyelonephritis, hypokalemia, and elevated troponin. Sepsis 2/2 pyelonephritis - UA c/w infection, CVA tenderness, R>L - Continue rocephin - Urine & blood cx pending - Bilateral renal US ordered - NS @125 HypoMg - 1.4, replaced with 2g - Recheck in AM Hypokalemia - 3.2, low Mg contributing. PO replacement with recheck in AM. Elevated trop - Trop 0.031, 0.013 - EKG with no ST segment changes HTN - Continue home meds HLD - Continue home meds OA - Continue home meds Depression - Continue home meds Code Status: FULL DVT ppx: lovenox PCP: [facility]
[2019-08-16] MEDS ORDERED: Magnesium 2 GM/50 ML 2 GM in Premix Bag 1 BAG IVPB SCH (07:30)
[2019-08-16] MEDS: Hydrochlorothiazide 25 MG TAB PO SCH (08:17)
[2019-08-16] MEDS: Metoprolol Tartrate 100 MG TAB PO SCH ×2 (08:17→20:34)
[2019-08-16] MEDS: Lisinopril 20 MG TAB PO SCH (08:17)
[2019-08-16] MEDS: Potassium Chloride 20 MEQ TAB PO SCH ×2 (08:17→17:00)
[2019-08-16] MEDS: busPIRone HCl 10 MG TAB PO SCH (08:17)
[2019-08-16] MEDS: Enoxaparin Sodium 40 MG/0.4 ML SYRINGE SC SCH (08:18)
[2019-08-16] MEDS ORDERED: Amlodipine 5 MG TAB PO SCH (09:00)
--- NOTE | 2019-08-16 10:20 | ULT ---
RENAL ULTRASOUND: INDICATION: Concern for pyelonephritis. COMPARISON: None. FINDINGS: No definite focal renal lesion or hydronephrosis is evident. The echotexture of both kidneys appears symmetrical without overt evidence of edematous change. The visualized bladder is normal appearing. The left kidney measured 12.4 x 5.5 x 4.8 cm. The right kidney measures 11.5 x 4.1 x 5.1 cm. Prevoi d bladder volume was 303.3 cc. IMPRESSION: No focal renal lesion or hydronephrosis. POS: CET
--- NOTE | 2019-08-16 11:32 | PRG ---
DATE OF SERVICE: 08/16/2019 ADDENDUM: To the note of Dr. Sweta Ortega. Ms. Solis is a pleasant 69-year-old lady, who was admitted with urinary tract infection and pyelonephritis. She has improved on antibiotics. She also has a history of stroke. She initially after stroke had some urinary incontinence, but denies any urinary complaints since that time. She underwent a renal ultrasound this morning, which was normal. We will continue her on antibiotic coverage as clinically, she is improving. Job ID: [id number]
[2019-08-16] MEDS: Atorvastatin Calcium 40 MG TAB PO SCH (20:33)
[2019-08-16] MEDS: cefTRIAXone\\ROCEPHIN 2 GM in Sodium Chloride 0.9% 100 ML IVPB SCH (20:34)
[2019-08-16] MEDS ORDERED: cefTRIAXone\\ROCEPHIN 1 GM in Sodium Chloride 0.9% 100 ML IVPB SCH (21:00)
[2019-08-17] MEDS: Acetaminophen 325 MG TAB PO PRN (00:25)
[2019-08-17 06:29] LABS: Anion Gap 10 mmol/L (10-20); BUN (Urea Nitrogen) 8 mg/dL (9.8-20.1); Calc. Creatinine Clearance 84 mL/min (70-130); Calcium 7.9 mg/dL (7.8-10.44); Carbon Dioxide 25 mmol/L (23-31); Chloride 103 mmol/L (98-107); Estimated GFR-MDRD 70; Glucose 120 mg/dL (80-115); Magnesium 2.1 mg/dL (1.6-2.6); Potassium 3.3 mmol/L (3.5-5.1); Sodium 135 mmol/L (136-145)
--- NOTE | 2019-08-17 06:43 | PDOC.FM ---
- Subjective Subjective: Feeling well. No overnight events. Tolerating po. Voiding. - Objective MAR Reviewed: Yes Vital Signs & Weight: Vital Signs (12 hours) Temp Pulse Resp BP Pulse Ox 08/17/19 03:45 98.2 F 67 18 124/56 L 93 L 08/17/19 00:35 100.3 F H 76 18 160/83 H 94 L 08/16/19 20:00 94 L 08/16/19 19:39 98.2 F 89 18 171/81 H 94 L Weight Weight 80.513 kg I&O: 08/15/19 08/16/19 08/17/19 06:59 06:59 06:59 Intake Total 1500 800 Output Total 1400 1600 Balance 100 -800 Result Diagrams: 08/16/19 05:23 08/17/19 05:10 Phys Exam - Physical Examination Constitutional: NAD HEENT: moist MMs Neck: supple Respiratory: no wheezing, clear to auscultation bilateral Cardiovascular: RRR, no significant murmur Gastrointestinal: soft, non-tender Musculoskeletal: no edema Neurological: moves all 4 limbs Psychiatric: normal affect, A&O x 3 Skin: normal turgor Dx/Plan - Plan Plan: 69yo female with pmh of HTN, HLD, OA, depression, and a prior CVA w/ residual L- sided hemiparesis admitted for sepsis 2/2 pyelonephritis Sepsis 2/2 E coli pyelonephritis - UA c/w infection, CVA tenderness, R>L - Continue Rocephin - Urine cx cummins sensitive E coli. Blood cx 2/2 gram neg herlinda - Bilateral renal US normal E coli Bacteremia - Continue Rocephin Deconditioning - PT/OT consulted. Reports inability to walk with them yesterday. Only has a friend in her 70's to care for her at home. - Rehab consult placed. Has been before for 6wks after surgery Hypokalemia - 3.3, replaced with PO HypoMg, resolved Elevated trop - Trop 0.031, 0.013 - EKG with no ST segment changes HTN - Continue home meds HLD - Continue home meds OA - Continue home meds Depression - Continue home meds Code Status: FULL DVT ppx: lovenox PCP: Chintan
[2019-08-17] MEDS: Enoxaparin Sodium 40 MG/0.4 ML SYRINGE SC SCH (09:25)
[2019-08-17] MEDS: Potassium Chloride 20 MEQ TAB PO SCH ×2 (09:26→16:33)
[2019-08-17] MEDS: Lisinopril 20 MG TAB PO SCH (09:27)
[2019-08-17] MEDS: Hydrochlorothiazide 25 MG TAB PO SCH (09:27)
[2019-08-17] MEDS: Metoprolol Tartrate 100 MG TAB PO SCH ×2 (09:27→20:31)
[2019-08-17] MEDS: busPIRone HCl 10 MG TAB PO SCH (09:27)
[2019-08-17] MEDS: Amlodipine 5 MG TAB PO SCH (09:27)
--- NOTE | 2019-08-17 10:32 | PRG ---
DATE OF SERVICE: 08/17/2019 Ms. Solis is sitting quietly in bed, in no distress. Urine and blood cultures both growing out a pansensitive E coli. Ms. Solis had a slight elevation of fever at midnight around 100.3, otherwise has been afebrile with stable vital signs. We will continue her on intravenous ceftriaxone. Job ID: [id number]
[2019-08-17] MEDS: Atorvastatin Calcium 40 MG TAB PO SCH (20:30)
[2019-08-17] MEDS: cefTRIAXone\\ROCEPHIN 2 GM in Sodium Chloride 0.9% 100 ML IVPB SCH (20:33)
--- NOTE | 2019-08-18 06:43 | PDOC.FM ---
- Subjective Subjective: Doing well. No overnight events. Denies fever, chills. Reports good appetite. She would like to go to [facility]. - Objective MAR Reviewed: Yes Vital Signs & Weight: Vital Signs (12 hours) Temp Pulse Resp BP Pulse Ox 08/18/19 04:00 98.8 F 71 20 143/81 H 92 L 08/17/19 23:50 98.3 F 76 20 118/72 95 08/17/19 19:31 98.7 F 74 20 144/77 H 94 L Weight Weight 80.513 kg I&O: 08/16/19 08/17/19 08/18/19 06:59 06:59 06:59 Intake Total 1500 800 Output Total 1400 1600 Balance 100 -800 Result Diagrams: 08/16/19 05:23 08/18/19 07:16 Phys Exam - Physical Examination Constitutional: NAD HEENT: moist MMs Neck: supple Respiratory: no wheezing, clear to auscultation bilateral Cardiovascular: RRR, no significant murmur Gastrointestinal: soft, non-tender Musculoskeletal: no edema Neurological: moves all 4 limbs Psychiatric: normal affect, A&O x 3 Skin: normal turgor Dx/Plan - Plan Plan: 69yo female with pmh of HTN, HLD, OA, depression, and a prior CVA w/ residual L- sided hemiparesis admitted for sepsis 2/2 pyelonephritis Sepsis 2/2 E coli pyelonephritis - Sepsis resolved - UA c/w infection, CVA tenderness, R>L - Transition from Rocephin to PO ABx - Urine cx cummins sensitive E coli. Blood cx 2/2 gram neg herlinda - Bilateral renal US normal E coli Bacteremia - Discontinue Rocephin. Will transition to PO Abx today Deconditioning - PT/OT consulted. Only has a friend in her 70's to care for her at home. - Rehab consult placed. Hypokalemia - BMP pending HypoMg, resolved - Ordered this AM Elevated trop - Trop 0.031, 0.013 - EKG with no ST segment changes HTN - Continue home meds HLD - Continue home meds OA - Continue home meds Depression - Continue home meds Code Status: FULL DVT ppx: lovenox PCP: Chintan Addendum - Attending - Attending Attestation Date/Time: 08/18/19 6417 I personally evaluated the patient and discussed the management with Dr. Ortega I agree with the History, Examination, Assessment and Plan documented above with any addition or exceptions noted below. Cultures grew 3/3 pansensitive e. coli. Switch to bactrim. Referral for SNF sent today.
[2019-08-18 07:50] LABS: Anion Gap 11 mmol/L (10-20); BUN (Urea Nitrogen) 10 mg/dL (9.8-20.1); Calc. Creatinine Clearance 81 mL/min (70-130); Calcium 8.7 mg/dL (7.8-10.44); Carbon Dioxide 28 mmol/L (23-31); Chloride 102 mmol/L (98-107); Estimated GFR-MDRD 67; Glucose 112 mg/dL (80-115); Magnesium 1.9 mg/dL (1.6-2.6); Potassium 3.7 mmol/L (3.5-5.1); Sodium 137 mmol/L (136-145)
[2019-08-18] MEDS: Acetaminophen 325 MG TAB PO PRN ×2 (08:30→15:47)
[2019-08-18] MEDS: Amlodipine 5 MG TAB PO SCH (09:30)
[2019-08-18] MEDS: busPIRone HCl 10 MG TAB PO SCH (09:31)
[2019-08-18] MEDS: Lisinopril 20 MG TAB PO SCH (09:32)
[2019-08-18] MEDS: Hydrochlorothiazide 25 MG TAB PO SCH (09:32)
[2019-08-18] MEDS: Metoprolol Tartrate 100 MG TAB PO SCH ×2 (09:33→20:29)
[2019-08-18] MEDS: Sulfameth/Trimethoprim DS 800-160mg TAB PO SCH ×2 (09:35→20:29)
[2019-08-18] MEDS: Enoxaparin Sodium 40 MG/0.4 ML SYRINGE SC SCH (09:37)
[2019-08-18] MEDS: Atorvastatin Calcium 40 MG TAB PO SCH (20:29)
--- NOTE | 2019-08-19 06:56 | PDOC.FM ---
- Subjective Subjective: Feeling well this morning. Denies fever, chills. Poor appetite due to food selection with heart healthy diet. - Objective MAR Reviewed: Yes Vital Signs & Weight: Vital Signs (12 hours) Temp Pulse Resp BP Pulse Ox 08/18/19 19:22 98.2 F 70 20 125/68 92 L Weight Weight 80.513 kg I&O: 08/17/19 08/18/19 08/19/19 06:59 06:59 06:59 Intake Total 800 480 Output Total 1600 Balance -800 480 Result Diagrams: 08/16/19 05:23 08/18/19 07:16 Phys Exam - Physical Examination Constitutional: NAD HEENT: moist MMs Neck: supple Respiratory: no wheezing, clear to auscultation bilateral Cardiovascular: RRR, no significant murmur Gastrointestinal: soft, non-tender trace edema left leg, affected side from CVA Psychiatric: normal affect, A&O x 3 Skin: normal turgor Dx/Plan - Plan Plan: 69yo female with pmh of HTN, HLD, OA, depression, and a prior CVA w/ residual L- sided hemiparesis admitted for sepsis 2/2 pyelonephritis Sepsis 2/2 E coli pyelonephritis - Sepsis resolved - Urine cx cummins sensitive E coli. Blood cx 2/2 gram neg herlinda - Bilateral renal US normal - Continue Bactrim for total 2 wk course E coli Bacteremia - Manage as above Deconditioning - PT/OT consulted - Pending dc to SNF Hypokalemia, resolved HypoMg, resolved Elevated trop - Trop 0.031, 0.013 - EKG with no ST segment changes HTN - Continue home meds HLD - Continue home meds OA - Continue home meds Depression - Continue home meds Code Status: FULL DVT ppx: lovenox PCP: Chintan Addendum - Attending - Attending Attestation Date/Time: 08/19/19 1012 I personally evaluated the patient and discussed the management with Dr. Ortega. I agree with the History, Examination, Assessment and Plan documented above with any addition or exceptions noted below. Placement pending at this time. Patient otherwise ready for discharge.
[2019-08-19] MEDS: Lisinopril 20 MG TAB PO SCH (08:30)
[2019-08-19] MEDS: Sulfameth/Trimethoprim DS 800-160mg TAB PO SCH ×2 (08:30→19:52)
[2019-08-19] MEDS: busPIRone HCl 10 MG TAB PO SCH (08:30)
[2019-08-19] MEDS: Metoprolol Tartrate 100 MG TAB PO SCH ×2 (08:30→19:54)
[2019-08-19] MEDS: Acetaminophen 325 MG TAB PO PRN (08:30)
[2019-08-19] MEDS: Amlodipine 5 MG TAB PO SCH (08:30)
[2019-08-19] MEDS: Hydrochlorothiazide 25 MG TAB PO SCH (08:30)
[2019-08-19] MEDS: Enoxaparin Sodium 40 MG/0.4 ML SYRINGE SC SCH (09:07)
[2019-08-19] MEDS: Atorvastatin Calcium 40 MG TAB PO SCH (19:52)
--- NOTE | 2019-08-20 06:51 | PDOC.FM ---
- Subjective Subjective: No overnight events. Denies fever, chills. Feels ready to go home this morning. - Objective MAR Reviewed: Yes Vital Signs & Weight: Vital Signs (12 hours) Temp Pulse Resp BP Pulse Ox 08/19/19 20:00 93 L 08/19/19 19:54 97.6 F 63 16 123/63 93 L Weight Weight 80.513 kg I&O: 08/18/19 08/19/19 08/20/19 06:59 06:59 06:59 Intake Total 480 Balance 480 Result Diagrams: 08/16/19 05:23 08/18/19 07:16 Phys Exam - Physical Examination Constitutional: NAD HEENT: moist MMs Neck: supple Respiratory: no wheezing, clear to auscultation bilateral Cardiovascular: RRR, no significant murmur Gastrointestinal: soft Musculoskeletal: no edema residual left sided weakness Psychiatric: normal affect, A&O x 3 Skin: normal turgor Dx/Plan - Plan Plan: 69yo female with pmh of HTN, HLD, OA, depression, and a prior CVA w/ residual L- sided hemiparesis admitted for sepsis 2/2 pyelonephritis Pansensitive E coli pyelonephritis - Continue Bactrim for total 2 wk course Deconditioning - PT/OT consulted. Home with HH vs appeal for SNF placement Code Status: FULL DVT ppx: lovenox PCP: Chintan Addendum - Attending - Attending Attestation Date/Time: 08/20/19 1026 I personally evaluated the patient and discussed the management with Dr. Ortega I agree with the History, Examination, Assessment and Plan documented above with any addition or exceptions noted below. D/C home with HH and PT. insurance denied SNF/Swingbed stay. F/U PCP in 1 week. Bactrim for 2 weeks.
[2019-08-20] MEDS: Sulfameth/Trimethoprim DS 800-160mg TAB PO SCH (08:03)
[2019-08-20] MEDS: Hydrochlorothiazide 25 MG TAB PO SCH (08:03)
[2019-08-20] MEDS: busPIRone HCl 10 MG TAB PO SCH (08:04)
[2019-08-20] MEDS: Enoxaparin Sodium 40 MG/0.4 ML SYRINGE SC SCH (08:04)
[2019-08-20 08:11] VITALS: BP 103/62; TEMP 98.5
== END 2019-08-20 11:20 | disposition home health service (06) | DRG 872 ==
LOC: ERS 18:58 → T4-A 20:44
PROVIDERS: ADMIT Family Medicine; ATTEND Family Medicine
DX: A41.51 Sepsis due to Escherichia coli [E. coli] (principal); N12 Tubulo-interstitial nephritis, not specified as acute or chronic; I69.354 Hemiplegia and hemiparesis following cerebral infarction affecting left non-dominant side; I10 Essential (primary) hypertension; E78.5 Hyperlipidemia, unspecified; M19.90 Unspecified osteoarthritis, unspecified site; F32.9 Major depressive disorder, single episode, unspecified; E87.6 Hypokalemia; E83.42 Hypomagnesemia; R79.89 Other specified abnormal findings of blood chemistry; Z88.0 Allergy status to penicillin; Z91.041 Radiographic dye allergy status; Z79.899 Other long term (current) drug therapy; Z90.722 Acquired absence of ovaries, bilateral; Z87.891 Personal history of nicotine dependence
CPT/HCPCS: 36415; 51701; 76770; 80048; 80053; 81003; 81015; 82550; 82553; 83605; 83735; 84100; 84484; 85025; 87040; 87077; 87086; 87149; 87186; 87804; 93005; 96361; 96365; 96366; A4353; J0696; J1650; J3370; J3475; J3490

== ENCOUNTER 2020-05-16 10:31 | Outpatient (CLI) | payer MEDICARE, MEDICAID ==
--- NOTE | 2020-05-16 11:26 | MMO ---
Bilateral MAMMO Bilat Screen [facility]. CLINICAL HISTORY: Patient is 70 years old and is seen for screening. The patient has no family history of breast cancer. The patient has no personal history of cancer. VIEWS: The views performed were: bilateral craniocaudal with tomosynthesis and bilateral mediolateral oblique with tomosynthesis. FILMS COMPARED: The present examination has been compared to prior imaging studies performed at [facility] on 04/29/2016, 05/01/2017, 05/07/2018 and 05/10/2019. This study has been interpreted with the assistance of computer-aided detection. MAMMOGRAM FINDINGS: There are scattered fibroglandular densities. Benign calcifications are noted bilaterally. Nodularity is stable. There are no suspicious masses, suspicious calcifications, or new areas of architectural distortion. IMPRESSION: THERE IS NO MAMMOGRAPHIC EVIDENCE OF MALIGNANCY. A ROUTINE FOLLOW-UP MAMMOGRAM IN 1 YEAR IS RECOMMENDED. THE RESULTS OF THIS EXAM WERE SENT TO THE PATIENT. ACR BI-RADS Category 2 - Benign finding MAMMOGRAPHY NOTE: 1. A negative mammogram report should not delay a biopsy if a dominant of clinically suspicious mass is present. 2. Approximately 10% to 15% of breast cancers are not detected by mammography. 3. Adenosis and dense breasts may obscure an underlying neoplasm. Reported by: CHRISSY NEWMAN MD Electonically Signed: [id number]
--- NOTE | 2020-05-16 13:58 | BD ---
Exam: DEXA Bone Density HISTORY: Postmenopausal. Lumbar Spine: BMD (g/cm2) T-SCORE L1 0.868 -1.1 L2 0.957 -0.6 L3 0.998 -0.8 L4 1.127 +0.6 L1-L4 0.999 -0.4 Right Femoral Neck: 0.695 -1.4 Total Femur: 0.864 -0.6 Impression: Normal bone mineral density of the lumbar spine. Osteopenia of the right femoral neck. POS: ELICEO
== END 2020-05-16 10:32 | disposition home or self-care (01) ==
LOC: BICMAMMO 10:31
PROVIDERS: ATTEND Family Medicine
DX: Z12.31 Encounter for screening mammogram for malignant neoplasm of breast (principal); M85.851 Other specified disorders of bone density and structure, right thigh
CPT/HCPCS: 77063; 77067; 77080

== ENCOUNTER 2020-05-28 13:21 | Inpatient (IN) | payer MEDICARE, MEDICAID ==
[2020-05-28 13:53] LABS: #Basophils 0.1 thou/uL (0.0-0.2); #Eosinphils 0.2 thou/uL (0.0-0.7); #Lymphocytes 2.7 thou/uL (1.20-3.40); #Monocytes 1.1 thou/uL (0.11-0.59); %Basophils 0.6 % (0.0-1.0); %Eosinophils 1.4 % (0.0-10.0); %Lymphocytes 20.7 % (21.0-51.0); %Monocytes 8.5 % (0.0-10.0); %Neutrophils 68.8 % (42.0-75.0); Mean Corpuscular HGB CONC 34.2 g/dL (32.0-36.0); Mean Corpuscular Volume 93.7 fL (78.0-98.0); Mean Platelet Volume 7.9 fL (7.4-10.4); Platelet Count 232 thou/uL (130-400); RBC Distribution Width 11.3 % (11.5-14.5); Red Blood Cell (RBC) Count 3.12 mill/uL (4.20-5.40)
[2020-05-28 13:58] LABS: Prothrombin Time 14.1 sec (12.0-14.7)
--- NOTE | 2020-05-28 13:58 | CT ---
CT Brain WO Con: 05/28/2020 1:35 PM CLINICAL HISTORY: Stroke alert with left-sided weakness. IMAGING TECHNIQUE: Multiple CT images were obtained of the brain without IV contrast. COMPARISON: None. FINDINGS: BRAIN: Evidence of acute infarct: None. Evidence of chronic ischemic change:There is a remote right-sided MCA distribution infarct with evide nce of encephalomalacia involving the right caudate head, right globus pallidus and right temporal parietal lobe. There is some associated ex vacuo dilatation of the right lateral ventricle. Evidence of intracranial hemorrhage: None. Evidence of brain volume loss:None. Evidence of midline shift: Third ventricle and septum pellucidum are midline. Ventricles: Normal. No hydrocephalus. SKULL: Intact. VISUALIZED PARANASAL SINUSES: Clear. MASTOID AIR CELLS: Clear. EXTRACRANIAL SOFT TISSUES: Normal. IMPRESSION: Remote right-sided MCA distribution infarct. No acute infarct, hemorrhage or hydrocephalus is present. Findings were called to Dr. Carrera at 1:53 PM on May 28, 2020.
[2020-05-28 14:00] LABS: INR-International Normal Ratio 1.1
[2020-05-28] MEDS ORDERED: Aspirin Chewable 81 MG TAB ONE (14:02)
[2020-05-28 14:09] LABS: ALT (SGPT) 8 U/L (8-55); AST (SGOT) 12 U/L (5-34); Albumin 3.7 g/dL (3.4-4.8); Alkaline Phosphatase 52 U/L (40-110); Anion Gap 14 mmol/L (10-20); BUN (Urea Nitrogen) 60 mg/dL (9.8-20.1); Bilirubin, Total 0.4 mg/dL (0.2-1.2); Calc. Creatinine Clearance 0 mL/min (70-130); Calcium 8.8 mg/dL (7.8-10.44); Carbon Dioxide 24 mmol/L (23-31); Chloride 105 mmol/L (98-107); Estimated GFR-MDRD 45; Globulin 2.4 g/dL (2.4-3.5); Glucose 108 mg/dL (80-115); Potassium 3.6 mmol/L (3.5-5.1); Protein, Total 6.1 g/dL (6.0-8.3); Sodium 139 mmol/L (136-145)
[2020-05-28 14:10] LABS: CKMB 0.5 ng/mL (0-6.6); Troponin I Less than 0.010 ng/mL (< 0.028)
--- NOTE | 2020-05-28 14:43 | PDOC.FPRHP ---
- History of Present Illness Chief Complaint: slurred speech History of Present Illness: Pt is a 70 yo female with hx of CVA, HLD and HTN who presents with weakness, dizziness and slurred speech. States that yesterday when standing up she felt dizzy and nauseous, but no emesis. She has a history of CVA in 2004 with resi dual left hemiparesis. She has felt that her left sided weakness got worse yesterday as well. When she spoke with her sister she was having a hard time finding words and her sister noted her speech sounded slurred so she suggested she call EMS. - Allergies/Adverse Reactions Allergies Allergy/AdvReac Type Severity Reaction Status Date / Time Penicillins Allergy Severe HIVES, Verified 08/15/19 23:02 SWELLING iodine Allergy Intermediate Rash Verified 08/15/19 23:02 iron Allergy Intermediate VOMITING Verified 08/15/19 23:02 Iodine and Iodide Containing Allergy RASH, Verified 08/15/19 23:02 Produc - Home Medications Medication Instructions Recorded Confirmed Type Amlodipine Besylate [amLODIPine 5 mg PO HS 08/12/16 05/29/20 History Besylate] Atorvastatin Calcium [Lipitor] 80 mg PO HS 08/12/16 05/29/20 History Metoprolol Tartrate [Lopressor] 100 mg PO BID 08/12/16 05/29/20 History Sertraline HCl [Zoloft] 50 mg PO QAM 08/12/16 05/29/20 History busPIRone HCl [Buspar] 10 mg PO BID 08/12/16 05/29/20 History Lisinopril 1 tab PO HS 12/11/18 05/29/20 History Hydrochlorothiazide 25 mg PO HS 08/15/19 05/29/20 History Aspirin [Ecotrin] 81 mg PO HS 05/28/20 05/29/20 History Calcium Carbonate [Calcium] 1,000 mg PO HS 05/28/20 05/29/20 History Potassium Chloride 20 meq PO HS 05/28/20 05/29/20 History Solifenacin Succinate [Vesicare] 10 mg PO HS 05/28/20 05/29/20 History Ibuprofen 800 mg PO Q6H PRN 05/29/20 05/29/20 History - History PMHx: CVA in 2004 w/ residual hemiparesis, HLD, HTN, MDD, urge incontinence PSHx: L hip, R hemicolectomy, L carotid endarterectomy, tubal ligation, cholecystectomy FHx:mom- DM, CAD Social: former smoker, no alcohol. Lives alone - Review of Systems General: denies: fever/chills, weight/appetite/sleep changes Eyes: denies: vision changes ENT: denies: nasal congestion, rhinorrhea Respiratory: denies: cough, congestion, shortness of breath Cardiovascular: denies: chest pain, palpitation, edema Gastrointestinal: reports: nausea. denies: vomiting, diarrhea Genitourinary: denies: incontinence, dysuria Skin: denies: rashes, lesions Musculoskeletal: denies: pain, tenderness Neurological: reports: weakness, other (slurred speech, dizziness) - Vital signs BP: 136/60, Pulse: 87, Resp: 21, O2 sat: 100 on (Room Air) - Physical Exam Constitutional: NAD, awake, alert and oriented HEENT: normocephalic and atraumatic, PERRLA, EOMI, conjunctiva clear, grossly normal vision, grossly normal hearing Neck: supple, no JVD Chest: no-tender to palpation Heart: RRR, no murmurs/rubs/gallops, no edema Lungs: CTAB, no respiratory distress, no wheezing Abdomen: soft, non-tender, no masses/distention -Musculoskeletal: L arm contracted, LLE decreased tone -Neurological: CN II-XII intact, decreased sensation on LE, worse on left, motor 3/5 LE, motor 4/5 on RUE Skin: capillary refill <2 seconds, no jaundice Heme/Lymphatic: no unusual bruising or bleeding Psychiatric: normal mood and affect, intact recent and remote memory FMR H&P: Results - Labs Result Diagrams: 05/29/20 04:30 05/29/20 04:30 Lab results: WBC 13.0 thou/uL (4.8-10.8) H 05/28/20 13:40 Hgb 10.0 g/dL (12.0-16.0) L 05/28/20 13:40 Hct 29.2 % (36.0-47.0) L 05/28/20 13:40 MCV 93.7 fL (78.0-98.0) 05/28/20 13:40 Plt Count 232 thou/uL (130-400) 05/28/20 13:40 Neutrophils % 68.8 % (42.0-75.0) 05/28/20 13:40 Sodium 139 mmol/L (136-145) 05/28/20 13:40 Potassium 3.6 mmol/L (3.5-5.1) 05/28/20 13:40 Chloride 105 mmol/L (98-107) 05/28/20 13:40 Carbon Dioxide 24 mmol/L (23-31) 05/28/20 13:40 BUN 60 mg/dL (9.8-20.1) H 05/28/20 13:40 Creatinine 1.19 mg/dL (0.6-1.1) H 05/28/20 13:40 Glucose 108 mg/dL (80-115) 05/28/20 13:40 Calcium 8.8 mg/dL (7.8-10.44) 05/28/20 13:40 Total Bilirubin 0.4 mg/dL (0.2-1.2) 05/28/20 13:40 AST 12 U/L (5-34) 05/28/20 13:40 ALT 8 U/L (8-55) 05/28/20 13:40 Alkaline Phosphatase 52 U/L (40-110) 05/28/20 13:40 Creatine Kinase 45 U/L (29-168) 05/28/20 13:40 CK-MB (CK-2) 0.5 ng/mL (0-6.6) 05/28/20 13:40 Serum Total Protein 6.1 g/dL (6.0-8.3) 05/28/20 13:40 Albumin 3.7 g/dL (3.4-4.8) 05/28/20 13:40 - Radiology Interpretation CT scan - head Status: report reviewed by ga FMR H&P: A/P - Plan 70yo female w/ hx CVA and residual L sided weakness who presents with slurred speech and increasing weakness #CVA vs TIA -worsening L sided weakness, dizziness and aphasia. upon exam, sx have resolved -CT Brain w/o contrast: no acute findings. Has allergy to contrast -pending MRI, echo and carotid doppler -hx of L carotid endarterectomy -CM consulted: pt interested in possible placement to increase strength -PT/OT to evaluate #NESTOR -Cr 1.19, BUN 60 -given 500mL NS in ED -BMP in am #HLD -lipid panel on 04/26/2020 at [facility] shows chol 138, tri 166, HDL 54, LDL 60 -continue home Atorvastatin #normocytic anemia -H/H 05/11.2, MCV 93 #MDD -continue home meds #HTN -continue home meds Diet: HH, pending bedside swallow DVT ppx: Lovenox Code status: DNR-DNI PCP: Chintan Dispo: Stable, admit to obs on stroke unit. Anticipate LOS <48 hours. FMR H&P: Upper Level - Pertinent history Patient is a 70 yo female with hx of CVA in 2004 that she still has left sided residual deficits from that presents with worsening left lower extremity weakness along with changes in speech that started yesterday around 8PM. She says she got up to walk to bathroom at that time and felt dizzy. When she called her sister earlier this morning she says her sister thought her speech sounded slurred and called an ambulance for her for transport to the ED. Patient also said earlier she was having word finding difficulty. All her speech deficits have since resolved but the left sided weakness continues to feel worse than it did before. - Pertinent findings General: Well appearing, pleasant affect. Alert, oriented x 3. HEENT: Normocephalic, atraumatic. EOMI. MMM. Nares patent. Heart: Regular rate and rhythm. No significant murmur. No carotid bruit. Lungs: CTAB. Abdomen: Soft, nontender, nondistended. Extremities: No edema. Pulses full and equal bilaterally. Neuro: Gross sensation normal. Has contracture of left upper extremity (from previous CVA). Strength 4/5 in right upper extremity and 3/5 in bilateral lower extremities. CN II-XII intact. Skin: No rashes. Warm and dry. - Plan Date/Time: 05/28/20 1443 Annie Henao DO, PGY-2, have evaluated this patient and agree with findings/plan as outlined by employee communications intern resident. Pertinent changes/additions are listed here. CVA vs TIA rule out -has known CVA history in 2004 with residual left UE contracture and left LE weakness, now progressively worse weakness on left and new onset aphasia with word finding difficulty -CT head WO contrast negative -will check MRI (patient has hx of right hip replacement so will need to verify if MRI okay) -check ECHO (none prior on record) -carotid dopplers--of note has hx of left carotid endarterctomy in 2017 -PT/OT to eval/treat, consider CM consult once completed for SNF vs rehab placement NESTOR on CKD, Stage 2 -baseline Cr 0.8, admission creatinine 1.19 -s/p 500 mL bolus in ED -encourage PO hydration MDD, stable -continue home meds: Buspirone, Sertraline HLD -lipid panel on 04/26/2020 at [facility] shows chol 138, tri 166, HDL 54, LDL 60 -continue home Atorvastatin HTN -continue home meds: Amlodipine, Metoprolol, Lisinopril, HCTZ -home KCl 20 meq tabs Diet: HH, pending bedside swallow study VTE: Lovenox Code status: DNR-DNI PCP: Chintan Dispo: Stable, admit to obs on stroke unit. Anticipate LOS <48 hours. Addendum - Attending - Attending Attestation Date/Time: 05/29/20 7145 I personally evaluated the patient and discussed the management with Dr. Rodriguez I agree with the History, Examination, Assessment and Plan documented above with any addition or exceptions noted below.70 yo female s/p CVA with new onset anomic aphasia slurred speech and increased left sided weakness. Patient with symptom duration well outside window for acute intervention of CVA. low N.IH stroke score
[2020-05-28 14:52] LABS: Bilirubin Negative (Negative); Blood, Urine Negative (Negative); Clarity Clear (Clear); Glucose, Urine (Dipstick) Normal (Negative); Ketone, Urine Negative (Negative); Leukocyte Negative Leu/uL (Negative); Nitrite Negative (Negative); Protein, Urine (Dipstick) Negative (Neg-Trace); Specific Gravity, Urine 1.012 (1.002-1.036); Urobilinogen Normal mg/dL (Less than 2); pH, Urine 6.5 (5.0-9.0)
--- NOTE | 2020-05-28 14:56 | RAD ---
Exam: Chest one view HISTORY:Weakness. Comparison: 09/25/2009 FINDINGS: Cardiac silhouette: Normal Aorta: Atherosclerosis Pulmonary vessels: Normal Costophrenic angles: Clear LUNGS: No masses or consolidation. Pneumothorax: None Osseous abnormalities: None IMPRESSION: No acute cardiopulmonary process. Atherosclerosis.
[2020-05-28] MEDS ORDERED: Ondansetron PF 4 MG/2 ML Vial IVP PRN (15:40)
[2020-05-28] MEDS ORDERED: Ondansetron ODT 4 MG TAB PO PRN (15:40)
[2020-05-28] MEDS ORDERED: Acetaminophen 325 MG TAB PO PRN (15:40)
[2020-05-28] MEDS ORDERED: Ibuprofen 600 MG TAB PO PRN (15:52)
--- NOTE | 2020-05-28 17:20 | ULT ---
EXAM: Carotid ultrasound HISTORY: Stroke/TIA COMPARISON: 10/13/2017 TECHNIQUE: Multiplanar grayscale and color Doppler images were obtained in a carotid ultrasound. Spec tral analysis of the Doppler waveforms were performed. FINDINGS: A large amount of plaque is seen surrounding the right carotid bifurcation. The right common carotid artery has a normal waveform. The left common carotid artery has a normal waveform. Peak systolic velocity in the right internal carotid artery 0 cm/s. Not visualized and chronically oc cluded Peak systolic velocity in the right common carotid artery 65 cm/s. Peak systolic velocity in the left internal carotid artery 65 cm/s. Peak systolic velocity in the left common carotid artery 81 cm/s. The left ICA/CCA ratio is 0.8. The left vertebral artery is patent and demonstrates antegrade flow. The right vertebral artery canno t be visualized. IMPRESSION: 1. Chronic right internal carotid artery occlusion 2. Possible right vertebral artery occlusion
[2020-05-28 17:47] LABS: Troponin I Less than 0.010 ng/mL (< 0.028)
[2020-05-28 22:41] LABS: Troponin I Less than 0.010 ng/mL (< 0.028)
[2020-05-28] MEDS: busPIRone HCl 10 MG TAB PO SCH (23:05)
[2020-05-28] MEDS: Trospium 20 MG TAB PO SCH (23:05)
[2020-05-28] MEDS: Metoprolol Tartrate 100 MG TAB PO SCH (23:05)
[2020-05-28] MEDS: Atorvastatin Calcium 40 MG TAB PO SCH (23:05)
[2020-05-29 02:26] VITALS: BMI 25.9
--- NOTE | 2020-05-29 05:11 | PDOC.FM ---
- Subjective Subjective: Patient reports that she is doing well this morning. She believes that she is at her baseline. She denies SOB, CP, BAHENA, abdominal pain. - Objective MAR Reviewed: Yes Vital Signs & Weight: Vital Signs (12 hours) Temp Pulse Resp BP BP Pulse Ox 05/29/20 04:00 98.0 F 73 14 114/59 L 98 05/29/20 00:40 97.7 F 72 16 132/65 98 Weight Weight 72.847 kg Result Diagrams: 05/29/20 04:30 05/29/20 04:30 Phys Exam - Physical Examination Constitutional: NAD HEENT: moist MMs, sclera anicteric Neck: supple, full ROM Respiratory: no wheezing, no rales, no rhonchi, clear to auscultation bilateral Cardiovascular: RRR, no significant murmur, no rub Gastrointestinal: soft, non-tender, no distention Musculoskeletal: no edema left arm contracted, 3/5 strength on left side, normal sensation Psychiatric: normal affect, A&O x 3 Skin: no rash Dx/Plan - Plan Plan: CVA vs TIA -worsening L sided weakness, dizziness and aphasia; have since resolved -CT Brain w/o contrast: no acute findings, allergy to contrast -carotid doppler: Chronic R. ICA occlusion, possible R. vertebral artery occlusion -MRI scheduled for today -hx of L carotid endarterectomy -CM consulted: pt interested in possible placement to increase strength -PT/OT to evaluate -patient is on aspirin, consider dual antiplatelet therapy NESTOR, improved -Cr 1.19 > 1.05 -BUN 60 > 47 -s/p 500mL NS in ED -continue PO hydration HLD -lipid panel on 04/26/2020 at [facility] shows chol 138, tri 166, HDL 54, LDL 60 -continue home Atorvastatin normocytic anemia -H/H 05/11.2, MCV 93 MDD -continue home meds HTN -continue home meds Dispo: DC pending MRI results and CM recommendations Addendum - Attending - Attending Attestation Date/Time: 05/29/20 9578 I personally evaluated the patient and discussed the management with . [] I agree with the History, Examination, Assessment and Plan documented above with any addition or exceptions noted below. MRI brain with MRA Head and neck to evaluate vasculature. D/c ASA and start plavix but will do after MRI studies to see if CV surgery feels she is an appropriate surgical candidate. Per patient she has been seen by Dr. Villalba before for her total ICA occlusion but he did not want to operate at that time.
[2020-05-29 05:33] LABS: SARS-CoV-2 MS2 Positive; SARS-CoV-2 N Gene Negative; SARS-CoV-2 S Gene Negative; SARS-CoV-2 by NAA Not Detected (NotDetected); SARS-CoV-2 orf1ab Negative
[2020-05-29 05:49] LABS: #Basophils 0.1 thou/uL (0.0-0.2); #Eosinphils 0.4 thou/uL (0.0-0.7); #Lymphocytes 3.4 thou/uL (1.20-3.40); #Monocytes 0.8 thou/uL (0.11-0.59); #Neutrophils 5.6 thou/uL (1.40-6.50); %Basophils 0.7 % (0.0-1.0); %Eosinophils 3.8 % (0.0-10.0); %Lymphocytes 33.2 % (21.0-51.0); %Monocytes 7.4 % (0.0-10.0); %Neutrophils 54.9 % (42.0-75.0); Hemoglobin 9.2 g/dL (12.0-16.0); Mean Corpuscular HGB CONC 32.2 g/dL (32.0-36.0); Mean Corpuscular Hemoglobin 30.7 pg (27.0-31.0); Mean Corpuscular Volume 95.2 fL (78.0-98.0); Mean Platelet Volume 8.5 fL (7.4-10.4); Platelet Count 215 thou/uL (130-400); RBC Distribution Width 11.4 % (11.5-14.5); Red Blood Cell (RBC) Count 2.98 mill/uL (4.20-5.40); White Blood Cell (WBC) Count 10.3 thou/uL (4.8-10.8)
[2020-05-29 06:03] LABS: Anion Gap 13 mmol/L (10-20); BUN (Urea Nitrogen) 47 mg/dL (9.8-20.1); Calc. Creatinine Clearance 58 mL/min (70-130); Calcium 8.3 mg/dL (7.8-10.44); Carbon Dioxide 24 mmol/L (23-31); Chloride 106 mmol/L (98-107); Estimated GFR-MDRD 52; Glucose 89 mg/dL (80-115); Potassium 3.3 mmol/L (3.5-5.1); Sodium 140 mmol/L (136-145)
[2020-05-29] MEDS ORDERED: Amlodipine 5 MG TAB PO SCH (09:00)
[2020-05-29] MEDS ORDERED: Aspirin 81 mg Enteric Coated Tablet PO SCH (09:00)
[2020-05-29] MEDS ORDERED: Magnevist 469MG/ML 20 ML VIAL ONE (09:16)
[2020-05-29] MEDS: Enoxaparin Sodium 40 MG/0.4 ML SYRINGE SC SCH (10:23)
[2020-05-29] MEDS: Potassium Chloride 20 MEQ TAB PO SCH (10:23)
[2020-05-29] MEDS: Calcium Carbonate 500 MG TAB PO SCH (10:24)
[2020-05-29] MEDS: Trospium 20 MG TAB PO SCH ×2 (10:24→20:38)
[2020-05-29] MEDS: Hydrochlorothiazide 25 MG TAB PO SCH (10:24)
[2020-05-29] MEDS: Metoprolol Tartrate 100 MG TAB PO SCH ×2 (10:24→21:06)
[2020-05-29] MEDS: busPIRone HCl 10 MG TAB PO SCH ×2 (10:24→20:38)
[2020-05-29] MEDS: Lisinopril 20 MG TAB PO SCH (10:24)
--- NOTE | 2020-05-29 15:18 | MRI ---
MR angiogram of the neck: 05/29/2020 COMPARISON: None HISTORY: Occluded right internal carotid artery, possible occlusion of the right vertebral artery TECHNIQUE: Routine [id number] MR angiography of the neck as well as routine postcontrast MR angio graphy of the neck obtained. FINDINGS: Antegrade blood flow noted within the common carotid artery and vertebral artery bilaterall y on the [id number] imaging. Antegrade blood flow also noted within the left internal carotid artery. The right internal carotid artery is occluded. The origin of the innominate artery, the left subclavian artery, and the left common carotid artery a ppears unremarkable. Mild stenosis is suspected at the origin of the right vertebral artery. The proximal left vertebral a rtery is tortuous. The mid vertebral artery demonstrates significant tortuosity bilaterally. Bilateral vertebral arteries are patent with no hemodynamically significant stenosis on either side. On the basis of NASCET criteria no hemodynamically significant stenosis is evident involving the comm on carotid artery on either side. The left internal carotid artery appears occluded at its origin. There is mild stenosis at the origin of the right subclavian artery, not optimally assessed secondary to tortuosity. On the basis of NASCET criteria there is no hemodynamically significant stenosis seen involving the l eft internal carotid artery. IMPRESSION: Bilateral vertebral arteries are patent. The right internal carotid artery appears occlud ed at its origin. No hemodynamically significant stenosis is seen involving the carotid system on the left.
--- NOTE | 2020-05-29 15:22 | MRI ---
MR angiogram of the head: 05/29/2020 COMPARISON: None HISTORY: Occluded right internal carotid artery TECHNIQUE: Routine 3-D pwun-of-awezbl MR angiography of the brain obtained. FINDINGS: The distal vertebral artery is patent bilaterally. The basilar artery appears patent as wel l. The P1 segment on the right demonstrates mild stenosis at its origin. The posterior cerebral artery appears patent bilaterally. No saccular aneurysm or vascular occlusion is seen involving the p osterior circulation. There is a patent posterior communicating artery on the right. The internal carotid artery on the right is occluded. Imaged portions of the left internal carotid artery appear g rossly unremarkable. The A1 segment, the M1 segment, and the MCA bifurcation demonstrate no acute findings. There is encephalomalacia within the right MCA territory consistent with prior right MCA in farction. No saccular aneurysm or intracranial occlusion seen. The M1 segment and distal MCA branches appear relatively hypoplastic associated with right ICA occlusion IMPRESSION: Occluded internal carotid artery on the right. Evidence of prior right MCA infarction.
--- NOTE | 2020-05-29 15:29 | MRI ---
BRAIN MRI WITHOUT CONTRAST: HISTORY: Left-sided weakness. Stroke symptoms. FINDINGS: Calvarium has a normal T1 marrow signal intensity. Midline brain parenchymal structures do not demon strate any acute abnormality. No hemorrhage on the axial gradient echo sequence. There is hemosiderin deposition involving a remote right MCA distribution infarct. There is associat ed gliosis and encephalomalacia. Confluent T2 and FLAIR white matter hyperintensities involving the right mendoza radiata and centrum semiovale are likely gliosis from remote injury. Additional scattered T2 and FLAIR white matter hyperintensities are likely due to chronic small-vesse l ischemic change. with regard to the left cerebrum, cortical cunningham-white matter differentiation is p reserved. Central arterial flow voids are maintained. Absent restricted diffusion. There is partial opacification of bilateral ethmoid air cells. There is complete opacification of th e left frontal sinus. IMPRESSION: 1. Left frontal sinus opacification. 2. Encephalomalacia and gliosis involving the right cerebrum. POS: H
[2020-05-29] MEDS: Atorvastatin Calcium 40 MG TAB PO SCH (20:38)
--- NOTE | 2020-05-30 05:41 | PDOC.FM ---
- Subjective Subjective: Patient doing well this morning. She had a pressure of 91/50 at 2100 last night and her night time metoprolol was held. Patient was asymptomatic at the time. She is tolerating PO intake and denies BAHENA, CP, SOB. She worked with PT and OT yesterday. - Objective MAR Reviewed: Yes Vital Signs & Weight: Vital Signs (12 hours) Temp Pulse Resp BP BP Pulse Ox 05/30/20 05:26 97.6 F 68 18 104/56 L 95 05/30/20 00:10 98.2 F 68 18 111/57 L 96 05/29/20 20:29 98.0 F 71 18 91/50 L 98 Weight Weight 72.847 kg I&O: 05/28/20 05/29/20 05/30/20 06:59 06:59 06:59 Intake Total 150 1000 Output Total 300 375 Balance -150 625 Result Diagrams: 05/30/20 06:28 05/30/20 06:28 Phys Exam - Physical Examination Constitutional: NAD Neck: supple, full ROM Respiratory: no wheezing, no rales, no rhonchi, clear to auscultation bilateral Cardiovascular: RRR Gastrointestinal: soft, non-tender, no distention, positive bowel sounds Musculoskeletal: no edema 3/5 strength on left, 5/5 on right, normal sensation Psychiatric: normal affect, A&O x 3 Skin: no rash Dx/Plan - Plan Plan: Likely TIA -worsening L sided weakness, dizziness and aphasia; have since resolved -CT Brain w/o contrast: no acute findings, allergy to contrast -carotid doppler: Chronic R. ICA occlusion, possible R. vertebral artery oc clusion -MRI: left frontal sinus opacification, encephalomalacia and gliosis invlolving the right cerebrum -MRA head and neck:Occluded ICA on right, evidence of prior right MCA infarction, bilateral vertebral arteries are patent -hx of L carotid endarterectomy -patient reports that she was seen by Dr. Villalba regarding occlusion of R. ICA and surgical repair was not an option -CM consulted: likely placement -PT/OT consulted: recommended SNF vs. Rehab -DC'd patient's aspirin and switched to plavix NESTOR, improved -Cr 1.19 > 1.05 > 1.09 -BUN 60 > 47 > 37 -s/p 500mL NS in ED -continue PO hydration HLD -lipid panel on 04/26/2020 at [facility] shows chol 138, tri 166, HDL 54, LDL 60 -continue home Atorvastatin normocytic anemia -H/H 05/11.2, MCV 93 MDD -continue home meds HTN -patient's pressures have been soft, her home metoprolol was held last night, will discontinue amlodipine but continue other home meds Dispo: pending CM placement Addendum - Attending - Attending Attestation Date/Time: 05/30/20 [id number] I personally evaluated the patient and discussed the management with Dr. Livingston. I agree with the History, Examination, Assessment and Plan documented above with any addition or exceptions noted below. Placement pending. upgrade to inpatient.
[2020-05-30 06:47] LABS: #Basophils 0.1 thou/uL (0.0-0.2); #Eosinphils 0.5 thou/uL (0.0-0.7); #Lymphocytes 2.7 thou/uL (1.20-3.40); #Monocytes 0.7 thou/uL (0.11-0.59); #Neutrophils 5.2 thou/uL (1.40-6.50); %Basophils 0.8 % (0.0-1.0); %Eosinophils 5.4 % (0.0-10.0); %Lymphocytes 29.3 % (21.0-51.0); %Monocytes 7.9 % (0.0-10.0); %Neutrophils 56.5 % (42.0-75.0); Hemoglobin 8.9 g/dL (12.0-16.0); Mean Corpuscular HGB CONC 33.6 g/dL (32.0-36.0); Mean Corpuscular Hemoglobin 32.2 pg (27.0-31.0); Mean Corpuscular Volume 95.6 fL (78.0-98.0); Mean Platelet Volume 8.1 fL (7.4-10.4); Platelet Count 198 thou/uL (130-400); RBC Distribution Width 11.3 % (11.5-14.5); Red Blood Cell (RBC) Count 2.75 mill/uL (4.20-5.40); White Blood Cell (WBC) Count 9.1 thou/uL (4.8-10.8)
[2020-05-30 07:09] LABS: Anion Gap 12 mmol/L (10-20); BUN (Urea Nitrogen) 37 mg/dL (9.8-20.1); Calc. Creatinine Clearance 56 mL/min (70-130); Calcium 8.5 mg/dL (7.8-10.44); Carbon Dioxide 25 mmol/L (23-31); Chloride 105 mmol/L (98-107); Estimated GFR-MDRD 50; Glucose 98 mg/dL (80-115); Magnesium 1.8 mg/dL (1.6-2.6); Phosphorus 3.8 mg/dL (2.3-4.7); Potassium 3.8 mmol/L (3.5-5.1); Sodium 138 mmol/L (136-145)
[2020-05-30] MEDS: Potassium Chloride 20 MEQ TAB PO SCH (09:25)
[2020-05-30] MEDS: busPIRone HCl 10 MG TAB PO SCH ×2 (09:25→20:53)
[2020-05-30] MEDS: Lisinopril 20 MG TAB PO SCH ×2 (09:25→09:36)
[2020-05-30] MEDS: Clopidogrel Bisulfate 75 MG TAB PO SCH (09:25)
[2020-05-30] MEDS: Calcium Carbonate 500 MG TAB PO SCH (09:25)
[2020-05-30] MEDS: Trospium 20 MG TAB PO SCH ×2 (09:25→20:53)
[2020-05-30] MEDS: Hydrochlorothiazide 25 MG TAB PO SCH (09:25)
[2020-05-30] MEDS: Metoprolol Tartrate 100 MG TAB PO SCH ×2 (09:26→21:33)
[2020-05-30] MEDS: Enoxaparin Sodium 40 MG/0.4 ML SYRINGE SC SCH (09:29)
[2020-05-30] MEDS: Atorvastatin Calcium 40 MG TAB PO SCH (20:53)
[2020-05-30] MEDS ORDERED: Lisinopril 20 MG TAB PO SCH ×2 (21:00)
[2020-05-30] MEDS: Docusate 100 MG CAP PO PRN (21:33)
--- NOTE | 2020-05-31 05:53 | PDOC.FM ---
- Subjective Subjective: Patient had soft blood pressure of 91/52 overnight and her lisinopril was held. Patient was asymptomatic at the time. She reports that she is feeling well and has no concerns this morning. Tolerating PO intake; denies SOB, CP, BAHENA. Awaiting acceptance for swing bed in [place]. - Objective MAR Reviewed: Yes Vital Signs & Weight: Vital Signs (12 hours) Temp Pulse Resp BP BP Pulse Ox 05/31/20 04:00 97.2 F L 68 16 110/58 L 96 05/31/20 00:00 97.5 F L 70 18 91/53 L 96 05/30/20 21:36 105/57 L 05/30/20 20:59 70 105/57 L 05/30/20 20:00 97.5 F L 70 16 95/53 L 94 L Weight Weight 72.847 kg I&O: 05/29/20 05/30/20 05/31/20 06:59 06:59 06:59 Intake Total 150 1000 500 Output Total 300 675 650 Balance -150 325 -150 Result Diagrams: 05/30/20 06:28 05/30/20 06:28 Phys Exam - Physical Examination Constitutional: NAD HEENT: moist MMs Neck: supple, full ROM Respiratory: no wheezing, no rales, no rhonchi Cardiovascular: RRR Gastrointestinal: soft, non-tender, no distention Musculoskeletal: no edema 3/5 on left strength on left; 5/5 on right; at patient's baseline Psychiatric: normal affect, A&O x 3 Skin: no rash Dx/Plan - Plan Plan: Likely TIA -worsening L sided weakness, dizziness and aphasia; have since resolved -CT Brain w/o contrast: no acute findings, allergy to contrast -carotid doppler: Chronic R. ICA occlusion, possible R. vertebral artery occlusion -MRI: left frontal sinus opacification, encephalomalacia and gliosis invlolving the right cerebrum -MRA head and neck:Occluded ICA on right, evidence of prior right MCA inf arction, bilateral vertebral arteries are patent -hx of L carotid endarterectomy -patient reports that she was seen by Dr. Villalba regarding occlusion of R. ICA and surgical repair was not an option -CM consulted: waiting for acceptance at [place] for a swing bed -PT/OT consulted: recommend SNF vs. rehab -patient now on plavix instead of aspirin HTN -patient's blood pressure has been soft while hospitalized -originally discontinued amlodipine and decreased lisinopril to 20 mg, also asked that lisinopril be given at night -will discontinue patient's metoprolol today NESTOR, resolved -no new labs today -Cr 1.19 > 1.05 > 1.09 -BUN 60 > 47 > 37 -s/p 500mL NS in ED -continue PO hydration HLD -lipid panel on 04/26/2020 at [facility] shows chol 138, tri 166, HDL 54, LDL 60 -continue home Atorvastatin normocytic anemia -H/H 05/11.2, MCV 93 MDD -continue home meds Dispo: pending placement Addendum - Attending - Attending Attestation Date/Time: 05/31/20 [id number] I personally evaluated the patient and discussed the management with Dr. Johanne lucero. I agree with the History, Examination, Assessment and Plan documented above with any addition or exceptions noted below. D/C to swing bed today.
[2020-05-31] MEDS: Enoxaparin Sodium 40 MG/0.4 ML SYRINGE SC SCH (10:22)
[2020-05-31] MEDS: Clopidogrel Bisulfate 75 MG TAB PO SCH (10:22)
[2020-05-31] MEDS: Hydrochlorothiazide 25 MG TAB PO SCH (10:22)
[2020-05-31] MEDS: busPIRone HCl 10 MG TAB PO SCH (10:22)
[2020-05-31] MEDS: Potassium Chloride 20 MEQ TAB PO SCH (10:23)
[2020-05-31] MEDS: Trospium 20 MG TAB PO SCH (10:23)
[2020-05-31] MEDS: Calcium Carbonate 500 MG TAB PO SCH (10:23)
[2020-05-31 11:33] VITALS: TEMP 97.5
[2020-05-31] MEDS: Docusate 100 MG CAP PO PRN (11:54)
[2020-05-31 16:18] VITALS: BP 111/59
--- NOTE | 2020-06-01 13:08 | DIS ---
DATE OF ADMISSION: 05/30/2020 DATE OF DISCHARGE: 05/31/2020 RESIDENT: Carolina Livingston MD. ADMITTING ATTENDING: Dr. Emeka Lopez. DISCHARGE ATTENDING: Dr. Delfino Boggs. CONSULTS: 1. Case Management. 2. OT. 3. PT. PROCEDURE/IMAGES: Brain CT: Remote right-sided MCA distribution infarct. No acute infarct, hemorrhage, or hydrocephalus is present. Chest x-ray: No acute cardiopulmonary process. Carotid Doppler study: Chronic right internal carotid artery occlusion. Possible right vertebral artery occluding. Brain MRI: Left frontal sinus opacification. Encephalomalacia and gliosis involving the right cerebrum. Brain and neck MRA: Occluded internal carotid artery on the right. Evidence of prior right MCA infarction. Bilateral vertebral arteries are patent. Echocardiogram: EF visually estimated at 55% to 60%. evidence of diastolic dysfunction. Mild mitral regurgitation. Mild annular calcification is present. Mild tricuspid regurg. PRIMARY DIAGNOSIS: Transient ischemic attack. SECONDARY DIAGNOSES: 1. Hypertension. 2. Acute kidney injury. 3. Hyperlipidemia. 4. Normocytic anemia. 5. MDD DISCHARGE MEDICATIONS: 1. Atorvastatin 80 mg p.o. h.s. 2. Buspirone 10 mg p.o. b.i.d. 3. Sertraline 50 mg p.o. q.a.m. 4. Lisinopril 40 one tab p.o. h.s. 5. Hydrochlorothiazide 25 mg p.o. h.s. 6. Calcium carbonate 1000 mg p.o. h.s. 7. VESIcare 10 mg p.o. h.s. 8. Potassium chloride 20 mEq p.o. h.s. 9. Plavix 75 mg p.o. daily. Discontinued Medications: 1. Metoprolol tartrate 100 mg p.o. b.i.d. 2. Amlodipine 5 mg p.o. h.s. 3. Aspirin 81 mg p.o. h.s. HISTORY OF PRESENT ILLNESS/HOSPITAL COURSE: The patient is a 70-year-old female with past medical history of CVA, hyperlipidemia, hypertension, who presents with weakness, dizziness, and slurred speech. Upon arrival, her symptoms have gradually resolved and continued to resolve throughout her hospital stay. Her symptoms had began the day before she presented to the ED, and she was out of the range for tPA. On arrival to the ED, a CT was ordered, which showed no acute findings. The patient was admitted to the stroke unit for further medical management. She underwent carotid Doppler, which showed concern for possible right vertebral artery occlusion and confirmed chronic right ICA occlusion. MRA confirmed that both vertebral arteries were patent. The patient also underwent MRI, which showed left frontal sinus opacification, encephalomalacia and gliosis involving the right cerebrum. Her echo was concerning for diastolic dysfunction with an EF of 55% to 60%. During the patient's hospital stay, she worked with PT and OT, who recommended [facility] facility for inpatient rehab for the patient. The patient agreed to be transferred to [facility] in [place]. On the day of discharge, the patient was stable. Her blood pressure remained borderline low while she was in the hospital, and her home medications of amlodipine and metoprolol were discontinued. The patient's lisinopril was also decreased to 20 mg. The patient was also switched from aspirin to Plavix. DISPOSITION: Stable. DISCHARGE INSTRUCTIONS: Location: [facility]. Diet: Heart healthy. Activity as tolerated. Followup: Follow up with Dr. Carey pending discharge from [facility]. Job ID: [id number] [facility] HOSPITALPradeep
== END 2020-05-31 15:45 | disposition swing bed (61) | DRG 69 ==
LOC: ERS 13:21 → ERHOLD 15:11 → 2SE 05-29 00:44 → OBSVTOIN 05-30 11:51
PROVIDERS: ADMIT Family Medicine; ATTEND Family Medicine
DX: G45.9 Transient cerebral ischemic attack, unspecified (principal); I69.354 Hemiplegia and hemiparesis following cerebral infarction affecting left non-dominant side; N17.9 Acute kidney failure, unspecified; E78.5 Hyperlipidemia, unspecified; F32.9 Major depressive disorder, single episode, unspecified; D64.9 Anemia, unspecified; I25.10 Atherosclerotic heart disease of native coronary artery without angina pectoris; Z66 Do not resuscitate; N18.2 Chronic kidney disease, stage 2 (mild); I12.9 Hypertensive chronic kidney disease with stage 1 through stage 4 chronic kidney disease, or unspecified chronic kidney disease; Z20.828 Contact with and (suspected) exposure to other viral communicable diseases; Z87.891 Personal history of nicotine dependence; Z88.0 Allergy status to penicillin; Z88.8 Allergy status to other drugs, medicaments and biological substances; Z79.899 Other long term (current) drug therapy; Z90.49 Acquired absence of other specified parts of digestive tract; Z98.51 Tubal ligation status
CPT/HCPCS: 36415; 36416; 51701; 70450; 70544; 70549; 70551; 71045; 80048; 80053; 81003; 82550; 82553; 83735; 84100; 84484; 85025; 85610; 85730; 87635; 93005; 93306; 93880; 96372; A9579; G0378; J1650; U0003

== ENCOUNTER 2020-07-19 09:01 | Outpatient (CLI) | payer MEDICARE, MEDICAID ==
--- NOTE | 2020-07-19 13:59 | NM ---
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 Radiopharmaceutical administered IV 3 hours prior to scan:5.05 mCi I-123 Ioflupane. Axial SPECT of brain performed. FINDINGS: Limited study because of patient's positioning, and limited mobility. Review of MRI of 05/29/2020 demonstrates moderately large old infarction involving right MCA territor y, including upper portion of operculum of right temporal lobe, and most or all of the right lentiform nucleus. Accordingly, there are moderate to large photopenic defects involving these areas on the SPECT images . Therefore, because of absence of tissue in the lentiform nucleus on the right, it is not possible to evaluate for Parkinson's disease regarding the right putamen. There is some uptake in the right caudate head, less than that of the contralateral left caudate head . In the left globus pallidus, where the MRI shows no abnormality, there is significantly decreased upt naila, consistent with Parkinson's disease. IMPRESSION: 1) positive for Parkinson's disease on the left side. 2) cannot evaluate right side because of old right middle cerebral artery territory infarction..
== END 2020-07-19 09:02 | disposition home or self-care (01) ==
LOC: NM 09:01
PROVIDERS: ATTEND Psychiatry & Neurology Neurology
DX: G20 Parkinson's disease (principal); I66.01 Occlusion and stenosis of right middle cerebral artery
CPT/HCPCS: 78803; A9584

== ENCOUNTER 2020-12-27 13:27 | Outpatient (CLI) | payer MEDICARE, MEDICAID | END 2020-12-27 13:28 | disposition home or self-care (01) | LOC: BICULT 13:27 | PROVIDERS: ATTEND Urology | DX: N39.41 Urge incontinence (principal); Z87.440 Personal history of urinary (tract) infections | CPT/HCPCS: 76770 ==

== ENCOUNTER 2021-06-23 08:47 | Inpatient (IN) | payer MEDICARE, MEDICAID ==
[2021-06-23 10:15] LABS: #Basophils 0.1 thou/uL (0.0-0.2); #Eosinphils 0.1 thou/uL (0.0-0.7); #Lymphocytes 1.6 thou/uL (1.20-3.40); #Monocytes 0.9 thou/uL (0.11-0.59); #Neutrophils 8.9 thou/uL (1.40-6.50); %Basophils 0.7 % (0.0-1.0); %Lymphocytes 14.1 % (21.0-51.0); %Monocytes 7.4 % (0.0-10.0); %Neutrophils 76.8 % (42.0-75.0); Hemoglobin 10.3 g/dL (12.0-16.0); Mean Corpuscular HGB CONC 31.3 g/dL (32.0-36.0); Mean Corpuscular Hemoglobin 26.2 pg (27.0-31.0); Mean Corpuscular Volume 83.7 fL (78.0-98.0); Platelet Count 209 thou/uL (130-400); RBC Distribution Width 14.3 % (11.5-14.5); Red Blood Cell (RBC) Count 3.93 mill/uL (4.20-5.40); White Blood Cell (WBC) Count 11.6 thou/uL (4.8-10.8)
[2021-06-23 10:36] LABS: ALT (SGPT) Less than 7 U/L (8-55); AST (SGOT) 21 U/L (5-34); Albumin 3.8 g/dL (3.4-4.8); Alkaline Phosphatase 55 U/L (40-110); Anion Gap 14 mmol/L (10-20); BUN (Urea Nitrogen) 17 mg/dL (9.8-20.1); Bilirubin, Total 0.6 mg/dL (0.2-1.2); CK (CPK) 321 U/L (29-168); Calc. Creatinine Clearance 0 mL/min (70-130); Carbon Dioxide 25 mmol/L (23-31); Chloride 104 mmol/L (98-107); Globulin 2.8 g/dL (2.4-3.5); Glucose 91 mg/dL (80-115); Magnesium 1.5 mg/dL (1.6-2.6); Protein, Total 6.6 g/dL (5.8-8.1); Sodium 140 mmol/L (136-145)
[2021-06-23 10:42] LABS: Bilirubin Negative (Negative); Blood, Urine Negative (Negative); Clarity Clear (Clear); Glucose, Urine (Dipstick) Normal (Negative); Ketone, Urine Negative (Negative); Leukocyte Negative Leu/uL (Negative); Nitrite Negative (Negative); Protein, Urine (Dipstick) Negative (Neg-Trace); Specific Gravity, Urine 1.022 (1.002-1.036); Urobilinogen Normal mg/dL (Less than 2); pH, Urine 5.5 (5.0-9.0)
[2021-06-23 10:47] LABS: Potassium 2.6 mmol/L (3.5-5.1)
[2021-06-23] MEDS ORDERED: Potassium Chloride 20 MEQ/100 ML PREMIX BAG ONE (12:32)
[2021-06-23] MEDS ORDERED: Potassium Chloride 40 MEQ in Sodium Chloride 0.9% 250 ML 250 ML IVPB SCH (14:00)
[2021-06-23 14:11] LABS: Iron Binding Capacity, Total 404 mcg/dL (265-497)
[2021-06-23 14:12] LABS: Iron 46 ug/dL (50-170)
[2021-06-23 20:11] LABS: Chloride 118 mmol/L (98-107); Sodium 138 mmol/L (136-145)
[2021-06-23 20:59] LABS: Calcium 8.3 mg/dL (7.8-10.44); Glucose 92 mg/dL (80-115)
[2021-06-23 21:00] LABS: Potassium 5.3 mmol/L (3.5-5.1)
[2021-06-23 21:01] LABS: Anion Gap 11 mmol/L (10-20); Carbon Dioxide 25 mmol/L (23-31)
[2021-06-23 21:02] LABS: Calc. Creatinine Clearance 62 mL/min (70-130)
[2021-06-23 21:03] LABS: BUN (Urea Nitrogen) 17 mg/dL (9.8-20.1)
[2021-06-23 21:04] LABS: Magnesium 1.8 mg/dL (1.6-2.6)
[2021-06-23 23:30] LABS: SARS-CoV-2 PCR by NAA Not Detected (NotDetected)
[2021-06-24] MEDS: Acetaminophen 325 MG TAB PO PRN ×2 (05:20→20:45)
[2021-06-24 05:22] LABS: Anion Gap 11 mmol/L (10-20); BUN (Urea Nitrogen) 15 mg/dL (9.8-20.1); Calc. Creatinine Clearance 61 mL/min (70-130); Calcium 8.7 mg/dL (7.8-10.44); Carbon Dioxide 27 mmol/L (23-31); Chloride 102 mmol/L (98-107); Glucose 92 mg/dL (80-115); Magnesium 1.7 mg/dL (1.6-2.6); Sodium 137 mmol/L (136-145)
[2021-06-24 05:25] LABS: Potassium 2.8 mmol/L (3.5-5.1)
[2021-06-24 05:28] LABS: Eosinophils 5 % (0-10); Hemoglobin 9.6 g/dL (12.0-16.0); Lymphocytes 23 % (21-51); MDiff Complete? YES; Mean Corpuscular HGB CONC 31.2 g/dL (32.0-36.0); Mean Corpuscular Hemoglobin 25.9 pg (27.0-31.0); Mean Corpuscular Volume 82.9 fL (78.0-98.0); Monocytes 9 % (0-10); Neutrophil 62 % (42-75); Platelet Count 192 thou/uL (130-400); Platelet Morphology Comment Appears Adequate; RBC Distribution Width 14.3 % (11.5-14.5); RBC Morphology Normal; Red Blood Cell (RBC) Count 3.72 mill/uL (4.20-5.40); White Blood Cell (WBC) Count 7.6 thou/uL (4.8-10.8)
[2021-06-24] MEDS ORDERED: Potassium Chloride 20 MEQ in Premix Bag 1 BAG IVPB SCH (06:00)
[2021-06-24] MEDS ORDERED: Lactated Ringer's 1,000 ML IV SCH (08:45)
[2021-06-24] MEDS ORDERED: Potassium Chloride 40 MEQ in Premix Bag 1 BAG IVPB SCH (08:45)
[2021-06-24] MEDS ORDERED: Enoxaparin Sodium 40 MG/0.4 ML SYRINGE SC SCH (09:00)
[2021-06-24] MEDS ORDERED: FLU VACC QS2021-22(65YR UP)/PF 240 MCG/0.7 ML SYRINGE IM ONE (09:00)
[2021-06-24] MEDS: Potassium Chloride 20 MEQ in Premix Bag 1 BAG IVPB SCH ×4 (09:40→17:01)
[2021-06-24] MEDS: Lactated Ringer's 1,000 ML IV SCH (09:40)
[2021-06-24] MEDS: Enoxaparin Sodium 40 MG/0.4 ML SYRINGE SC SCH (09:40)
[2021-06-24] MEDS ORDERED: Carbidopa/Levodopa 25-100 mg Tablet PO SCH (10:45)
[2021-06-24] MEDS ORDERED: busPIRone HCl 10 MG TAB PO SCH (11:45)
[2021-06-24] MEDS ORDERED: Nystatin Powder 15 GM BOT TOP PRN (15:17)
[2021-06-24] MEDS: Atorvastatin Calcium 40 MG TAB PO SCH (20:34)
[2021-06-24] MEDS: Hydrochlorothiazide 25 MG TAB PO SCH (20:34)
[2021-06-24] MEDS: Trospium 20 MG TAB PO SCH (20:34)
[2021-06-24] MEDS: Montelukast Sodium 10 mg Tablet PO SCH (20:35)
[2021-06-24] MEDS: busPIRone HCl 10 MG TAB PO SCH (20:35)
[2021-06-24] MEDS: Carbidopa/Levodopa 25-100 mg Tablet PO SCH (20:36)
[2021-06-24] MEDS: Potassium Chloride 20 MEQ TAB PO SCH (20:36)
[2021-06-24 22:14] LABS: Anion Gap 11 mmol/L (10-20); BUN (Urea Nitrogen) 17 mg/dL (9.8-20.1); Calc. Creatinine Clearance 69 mL/min (70-130); Calcium 8.4 mg/dL (7.8-10.44); Carbon Dioxide 26 mmol/L (23-31); Chloride 104 mmol/L (98-107); Glucose 101 mg/dL (80-115); Potassium 3.7 mmol/L (3.5-5.1); Sodium 137 mmol/L (136-145)
[2021-06-25] MEDS: Lactated Ringer's 1,000 ML IV SCH ×2 (00:55→15:02)
[2021-06-25 04:39] LABS: Eosinophils 3 % (0-10); Hemoglobin 9.4 g/dL (12.0-16.0); Lymphocytes 40 % (21-51); MDiff Complete? YES; Mean Corpuscular HGB CONC 32.7 g/dL (32.0-36.0); Mean Corpuscular Hemoglobin 27.1 pg (27.0-31.0); Mean Platelet Volume 8.3 fL (7.4-10.4); Monocytes 10 % (0-10); Myelocyte 1 % (0-0); Neutrophil 45 % (42-75); Platelet Count 179 thou/uL (130-400); Platelet Morphology Comment Appears Adequate; RBC Morphology Normal; Red Blood Cell (RBC) Count 3.45 mill/uL (4.20-5.40); White Blood Cell (WBC) Count 7.1 thou/uL (4.8-10.8)
[2021-06-25 04:54] LABS: Anion Gap 10 mmol/L (10-20); BUN (Urea Nitrogen) 16 mg/dL (9.8-20.1); Calc. Creatinine Clearance 74 mL/min (70-130); Calcium 8.6 mg/dL (7.8-10.44); Carbon Dioxide 26 mmol/L (23-31); Chloride 104 mmol/L (98-107); Glucose 88 mg/dL (80-115); Magnesium 1.7 mg/dL (1.6-2.6); Potassium 3.6 mmol/L (3.5-5.1); Sodium 136 mmol/L (136-145)
[2021-06-25] MEDS: Clopidogrel Bisulfate 75 MG TAB PO SCH (09:56)
[2021-06-25] MEDS: busPIRone HCl 10 MG TAB PO SCH ×2 (09:56→21:20)
[2021-06-25] MEDS: Aspirin 81 mg Enteric Coated Tablet PO SCH (09:56)
[2021-06-25] MEDS: Enoxaparin Sodium 40 MG/0.4 ML SYRINGE SC SCH (09:57)
[2021-06-25] MEDS: Carbidopa/Levodopa 25-100 mg Tablet PO SCH ×2 (09:57→20:41)
[2021-06-25] MEDS: Trospium 20 MG TAB PO SCH ×2 (09:57→20:40)
[2021-06-25] MEDS ORDERED: Polyethylene Glycol 3350 17 GM Packet PO SCH ×2 (10:11→10:15)
[2021-06-25] MEDS ORDERED: Iron Sucrose Complex 200 MG in Sodium Chloride 0.9% 100 ML IVPB SCH (11:45)
[2021-06-25] MEDS ORDERED: Iron, Sodium Ferric Gluconate 250 MG in Sodium Chloride 0.9% 250 ML 250 ML IVPB SCH (14:00)
[2021-06-25] MEDS ORDERED: Ondansetron PF 4 MG/2 ML Vial IVP SCH (17:00)
[2021-06-25] MEDS: Hydrochlorothiazide 25 MG TAB PO SCH (20:40)
[2021-06-25] MEDS: Montelukast Sodium 10 mg Tablet PO SCH (20:40)
[2021-06-25] MEDS: Potassium Chloride 20 MEQ TAB PO SCH (20:41)
[2021-06-25] MEDS: Atorvastatin Calcium 40 MG TAB PO SCH (20:52)
[2021-06-26] MEDS: Lactated Ringer's 1,000 ML IV SCH ×2 (04:32→18:13)
[2021-06-26] MEDS: Acetaminophen 325 MG TAB PO PRN ×3 (04:32→21:42)
[2021-06-26 05:17] LABS: Anion Gap 11 mmol/L (10-20); BUN (Urea Nitrogen) 15 mg/dL (9.8-20.1); Calc. Creatinine Clearance 68 mL/min (70-130); Calcium 8.5 mg/dL (7.8-10.44); Carbon Dioxide 26 mmol/L (23-31); Chloride 102 mmol/L (98-107); Glucose 90 mg/dL (80-115); Magnesium 1.6 mg/dL (1.6-2.6); Potassium 3.6 mmol/L (3.5-5.1); Sodium 135 mmol/L (136-145)
[2021-06-26 05:27] LABS: Eosinophils 5 % (0-10); Hemoglobin 10.9 g/dL (12.0-16.0); Lymphocytes 19 % (21-51); MDiff Complete? YES; Mean Corpuscular HGB CONC 32.7 g/dL (32.0-36.0); Mean Corpuscular Hemoglobin 27.4 pg (27.0-31.0); Mean Corpuscular Volume 83.8 fL (78.0-98.0); Mean Platelet Volume 8.4 fL (7.4-10.4); Monocytes 3 % (0-10); Neutrophil 73 % (42-75); Platelet Count 215 thou/uL (130-400); Platelet Morphology Comment Appears Adequate; RBC Distribution Width 14.6 % (11.5-14.5); RBC Morphology Normal; Red Blood Cell (RBC) Count 3.98 mill/uL (4.20-5.40); White Blood Cell (WBC) Count 10.2 thou/uL (4.8-10.8)
[2021-06-26] MEDS ORDERED: Polyethylene Glycol 3350 17 GM Packet PO SCH (09:00)
[2021-06-26] MEDS: Carbidopa/Levodopa 25-100 mg Tablet PO SCH ×2 (09:20→21:41)
[2021-06-26] MEDS: Trospium 20 MG TAB PO SCH ×2 (09:21→21:41)
[2021-06-26] MEDS: Clopidogrel Bisulfate 75 MG TAB PO SCH (09:21)
[2021-06-26] MEDS: Aspirin 81 mg Enteric Coated Tablet PO SCH (09:21)
[2021-06-26] MEDS: busPIRone HCl 10 MG TAB PO SCH ×2 (09:22→21:42)
[2021-06-26] MEDS: Enoxaparin Sodium 40 MG/0.4 ML SYRINGE SC SCH (09:22)
[2021-06-26] MEDS: Polyethylene Glycol 3350 17 GM Packet PO SCH (09:22)
[2021-06-26] MEDS: Hydrochlorothiazide 25 MG TAB PO SCH (21:41)
[2021-06-26] MEDS: Montelukast Sodium 10 mg Tablet PO SCH (21:41)
[2021-06-26] MEDS: Potassium Chloride 20 MEQ TAB PO SCH (21:41)
[2021-06-26] MEDS: Atorvastatin Calcium 40 MG TAB PO SCH (21:42)
[2021-06-27] MEDS: Lactated Ringer's 1,000 ML IV SCH ×2 (09:38→23:02)
[2021-06-27] MEDS: Aspirin 81 mg Enteric Coated Tablet PO SCH (09:39)
[2021-06-27] MEDS: Trospium 20 MG TAB PO SCH ×2 (09:39→22:48)
[2021-06-27] MEDS: Clopidogrel Bisulfate 75 MG TAB PO SCH (09:39)
[2021-06-27] MEDS: Polyethylene Glycol 3350 17 GM Packet PO SCH (09:40)
[2021-06-27] MEDS: busPIRone HCl 10 MG TAB PO SCH ×2 (09:40→22:49)
[2021-06-27] MEDS: Carbidopa/Levodopa 25-100 mg Tablet PO SCH ×2 (09:40→22:49)
[2021-06-27] MEDS: Enoxaparin Sodium 40 MG/0.4 ML SYRINGE SC SCH (09:41)
[2021-06-27] MEDS: Montelukast Sodium 10 mg Tablet PO SCH (22:48)
[2021-06-27] MEDS: Potassium Chloride 20 MEQ TAB PO SCH (22:48)
[2021-06-27] MEDS: Hydrochlorothiazide 25 MG TAB PO SCH (22:48)
[2021-06-27] MEDS: Atorvastatin Calcium 40 MG TAB PO SCH (22:49)
[2021-06-27] MEDS: Acetaminophen 325 MG TAB PO PRN (22:49)
[2021-06-28 08:06] VITALS: BMI 23.5
[2021-06-28] MEDS: Polyethylene Glycol 3350 17 GM Packet PO SCH (09:02)
[2021-06-28] MEDS: Enoxaparin Sodium 40 MG/0.4 ML SYRINGE SC SCH (09:02)
[2021-06-28] MEDS: Aspirin 81 mg Enteric Coated Tablet PO SCH (09:02)
[2021-06-28] MEDS: busPIRone HCl 10 MG TAB PO SCH (09:03)
[2021-06-28] MEDS: Trospium 20 MG TAB PO SCH (09:03)
[2021-06-28] MEDS: Carbidopa/Levodopa 25-100 mg Tablet PO SCH (09:03)
[2021-06-28] MEDS: Clopidogrel Bisulfate 75 MG TAB PO SCH (09:03)
[2021-06-28] MEDS: Lactated Ringer's 1,000 ML IV SCH (09:04)
[2021-06-28] MEDS: Acetaminophen 325 MG TAB PO PRN (13:34)
[2021-06-28 16:35] VITALS: BP 140/66; TEMP 97.9
== END 2021-06-28 16:40 | disposition swing bed (61) | DRG 948 ==
LOC: ERS 08:47 → 2NO 12:39 → OBSVTOIN 06-25 15:24
PROVIDERS: ADMIT Student in an Organized Health Care Education/Training Program; ATTEND Student in an Organized Health Care Education/Training Program
DX: R53.81 Other malaise (principal); I69.354 Hemiplegia and hemiparesis following cerebral infarction affecting left non-dominant side; E87.6 Hypokalemia; G20 Parkinson's disease; Z20.822 Contact with and (suspected) exposure to COVID-19; I45.81 Long QT syndrome; I10 Essential (primary) hypertension; D64.9 Anemia, unspecified; E83.42 Hypomagnesemia; Z88.0 Allergy status to penicillin; Z91.041 Radiographic dye allergy status; Z79.82 Long term (current) use of aspirin; Z79.02 Long term (current) use of antithrombotics/antiplatelets; Z79.899 Other long term (current) drug therapy
CPT/HCPCS: 36415; 71045; 80048; 80053; 81003; 82550; 82607; 82728; 82746; 83540; 83550; 83735; 84134; 84443; 84484; 85007; 85025; 85027; 90471; 90662; 93005; 96365; 96366; 96372; 96375; 96376; G0008; G0378; J1650; J2405; J2916; J3475; J3480; J3490; J7050; J7120; U0003; U0005